=== PATIENT | male | born 1990 | race Caucasian/White ===

== ENCOUNTER 2016-12-11 16:30 | Emergency (ER) | payer OTHER ==
--- NOTE | ~2016-12-11 | CR151 ---
[facility] A Service [facility] RADIOLOGY TEXT RESULTS PATIENT: NAYELI MCMAHON LOCATION: SED : [birth year] UNIT #: [id number] AGE: [address]: Rosamaria Alvares APRN SEX: M ORDER DR: [id number] [place] [id number] E MR#: [id number] Acc #: [id number] NAME: NAYELI MCMAHON : 1990 SEX: M STUDY DATE/TIME: 12/11/2016 16:43 UNIT: SED ROOM: STUDY DESCRIPTION: CR Hip Min 2 Views Rt Attending Physician: Rosamaria Alvares A.P.R.N. Ordering Physician: Rosamaria Becerra A.P.R.N. Primary Care Physician: Benito Martinez M.D. MEDICAL IMAGING REPORT This report is preliminary unless electronic signature is present. EXAM Right hip. HISTORY Hip pain after falling off a roof 2 days ago. TECHNIQUE 2 views of the hip were obtained. FINDINGS AP and oblique examination of the hip shows adequate mineralization of the bones and a normal anatomic relationship of the femoral head with the acetabulum. There are no hypertrophic changes, fractures, dislocation, or joint capsular distension. No radiopaque foreign body is present about the soft tissues of the hip. IMPRESSION Normal hip. Dictated by... Virgil Nichole M.D. THIS IS AN ELECTRONICALLY VERIFIED REPORT Virgil Nichole M.D. at 12/13/2016 11:01 AM CAROLE/wade TD: 12/12/2016 11:01 JOB #: [id number] [facility] A [facility] RADIOLOGY TEXT RESULTS PATIENT: NAYELI MCMAHON LOCATION: SED : 88 UNIT #: [id number] AGE: [address]: Rosamaria Alvares APRN SEX: M ORDER DR: MEDICAL IMAGING REPORT Page 1 of 1
--- NOTE | ~2016-12-11 | CR206 ---
[facility] A Service of [facility] RADIOLOGY TEXT RESULTS PATIENT: NAYELI MCMAHON LOCATION: SED : [birth year] UNIT #: [id number] AGE: [address]: Rosamaria Alvares APRN SEX: M ORDER DR: [id number] [address] [address] [id number] E MR#: [id number] Acc #: [id number] NAME: NAYELI MCMAHON : 1990 SEX: M STUDY DATE/TIME: 12/11/2016 16:43 UNIT: SED ROOM: STUDY DESCRIPTION: CR Pelvis 1 or 2 Views Attending Physician: Rosamaria Alvares A.P.R.N. Ordering Physician: Rosamaria Becerra A.P.R.N. Primary Care Physician: Benito Martinez M.D. MEDICAL IMAGING REPORT This report is preliminary unless electronic signature is present. EXAM AP pelvis HISTORY Trauma 2 days ago. Patient fell off of the roof cleaning gutters. TECHNIQUE Single AP view of the pelvis was obtained. FINDINGS AP, supine examination of the pelvis shows satisfactory mineralization of the bony pelvis. The sacroiliac joints are normal. There is no indication of congenital defect, fracture, or dislocation at the articular anatomy of the sacral segments or of the hip joints. No malignant, lytic, or blastic change is present. IMPRESSION Normal pelvis. Dictated by... Virgil Nichole M.D. THIS IS AN ELECTRONICALLY VERIFIED REPORT Virgil Nichole M.D. at 12/13/2016 11:01 AM RLF/yang TD: 12/12/2016 10:51 JOB #: [id number] MEDICAL IMAGING REPORT [facility] A Service [facility] RADIOLOGY TEXT RESULTS PATIENT: NAYELI MCMAHON LOCATION: SED : [birth year] UNIT #: [id number] AGE: [address]: Rosamaria Alvares APRN SEX: M ORDER DR: Page 1 of 1
[~2016-12-11 16:30] MED LIST: ALBUTEROL17 GM INH; APIDRA (NF100 UNITS/ INJ; BENTYL20 M1 PO; BENTYL20 MG PO; BUDEPRION SR100 M1 PO; DICLOFENAC DR PO; DICLOFENAC PO; DICYCLOMINE HCL20 MG PO; EC-NAPROSYN500 MG PO; HUMALOG100 U/M1 SUBQ; HUMALOG100 U/ML SUBQ; LANTUS100 U/ML; LANTUS100 U/ML INJ; LANTUS100 U/ML SUBQ; LANTUS100 UNITS/ INJ; LANTUS100 UNITS/ SUBQ; LEVEMIR SUBQ; MOTRIN600 M1 PO; NEURONTIN100 MG PO; NEURONTIN300 MG PO; NEURONTIN600 MG PO; NEURONTIN800 MG PO; NO MEDICATIONS; NOVOLOG100 U/ML SUBQ; OMEPRAZOLE20 M2 PO; OXYCODONE-ACET1 EACH PO; PENICILLIN V P500 MG PO; PHENERGAN25 M1 PO; PRILOSEC; PROTONIX PO; PROTONIX20 MG DOB; TYLOX PO; VEETIDS 500500 M1 PO; VIBRAMYCIN100 M1 PO; VICODIN 5/500 T1 TAB PO; VOLTAREN75 MG PO; ZANTAC150 MG PO; ZOFRAN ODT4 MG PO; ZOFRAN PO
== END 2016-12-11 17:50 | disposition home or self-care (01) ==
LOC: SED 16:30
DX: S70.01XA Contusion of right hip, initial encounter (principal); E10.9 Type 1 diabetes mellitus without complications; F31.9 Bipolar disorder, unspecified; F17.210 Nicotine dependence, cigarettes, uncomplicated; W18.30XA Fall on same level, unspecified, initial encounter
CPT/HCPCS: 72170; 73502; 99284

== ENCOUNTER 2016-12-13 10:40 | Inpatient (IN) | payer OTHER ==
--- NOTE | ~2016-12-13 | HP ---
Unit #: [id number] #: [id number] Patient: NAYELI MCMAHON [id number] [facility] [address] [place], [place] [address] [id number] I MR#: [id number] NAME: NAYELI MCMAHON [facility] Age: 26 Sex: M Admission Date: 12/13/2016 : 1990 Attending Physician: Lauren Gutierrez M.D. Primary Care Physician: Benito Martinez M.D. HISTORY AND PHYSICAL CHIEF COMPLAINT Nausea, vomiting and elevated blood sugar. HISTORY OF PRESENT ILLNESS Mr. Mcmahon is a 26-year-old male who is very well known to me from multiple admissions. He was at [facility] a few weeks ago for the same kind of reason. He has been admitted in [facility] multiple times for DKA. The patient has history of diabetes mellitus type 1 which is not very well controlled. According to patient, two days ago he was being under the weather. He was eating but then again vomiting and he did not take his insulin as it was bottoming out too because of vomiting, according to patient. He started having abdominal pain, came to ER for further evaluation. The patient was found to be in DKA. He is being admitted to hospital. He is complaining of abdominal pain which is pretty severe. According to him, he has had small bowel obstruction in the past. Level is 7 to 8 over 10 or so. The patient was also found to be hypotensive and probably dehydrated. PAST MEDICAL HISTORY 1. Diabetes mellitus type 2. 2. Bipolar disorder. 3. Posttraumatic stress disorder. 4. History of peripheral neuropathy. HOME MEDICATIONS 1. Prilosec daily. 2. Humalog 12 units subcutaneous three times a day. 3. Lantus 20 units subcutaneous b.i.d. 4. Neurontin 800 mg three times a day. 5. Zantac 150 mg daily. 6. Bentyl 10 mg daily. PAST SURGICAL HISTORY History of exploratory laparotomy and small bowel resection. ALLERGIES No known drug allergies. SOCIAL HISTORY The patient is a smoker. No alcohol abuse or drug abuse. REVIEW OF SYSTEMS As per history of presenting illness. Plus, patient did have a fall about two days ago while helping his father at work. He came to [facility] Unit #: [id number] #: [id number] [facility] of the hip was done and pelvis was done which were normal. PHYSICAL EXAMINATION VITAL SIGNS: The patient is being evaluated in ICU, bed 11. Blood pressure 97/46, respiratory rate 16, pulse 75, temperature 97.8, oxygen saturation is 99%. HEENT: Head is normocephalic. Eye movements are normal. Oral mucosa seems to be dry. NECK: Supple. No carotid bruit. No thyromegaly. CHEST: Fair air entry. No additional sounds. CARDIOVASCULAR: S1, S2 positive. Regular rhythm. ABDOMEN: Soft. Generalized tenderness is present. Bowel sounds are positive. EXTREMITIES: Negative edema. CENTRAL NERVOUS SYSTEM: The patient is awake, alert, oriented x3. No focal neurological deficit. DIAGNOSTIC STUDIES LABORATORY: Serum acetone level is 20. WBC 8.9, hemoglobin 16.1, hematocrit 49.1, platelet count 261,000. Sodium 126, potassium 4.4, chloride 84, glucose 868, BUN 16, creatinine 1.1. Liver enzymes are stable. ASSESSMENT The patient is being admitted to ICU with: 1. Diabetic ketoacidosis with history of diabetes mellitus type 1, uncontrolled. 2. Hypotension. 3. Dehydration. 4. Abdominal pain. 5. History of bipolar disorder. 6. History of peripheral neuropathy. PLAN 1. Admit to ICU. 2. Insulin drip, diabetic ketoacidosis protocol is being started. 3. IV Protonix 40 mg daily. 4. IV Zofran 4 mg q.6 p.r.n. 5. IV Dilaudid 0.5 to 1 mg q.[address] Santos has been consulted. 7. Discharge summary from [facility] will be obtained. 8. Plan of care has been discussed with patient. 9. Please refer to progress note for further orders. Dictated by Guevara Vargas TD: 12/13/2016 17:18 JOB #: [id number] Unit #: [id number] #: [id number] Patient: NAYELI MCMAHON HISTORY AND PHYSICAL Page 1 of 1 X Lauren Gutierrez MD HISTORY AND PHYSICAL
--- NOTE | ~2016-12-13 | CR72 ---
[facility] A Service of [facility] RADIOLOGY TEXT RESULTS PATIENT: NAYELI MCMAHON LOCATION: [place] [address]11 : [birth year] UNIT #: [id number] AGE: [address]: Lauren Gutierrez MD SEX: M ORDER DR: [id number] [facility] [address] [place], [place] [address] [id number] I MR#: [id number] Acc #: [id number] NAME: NAYELI MCMAHON : 1990 SEX: M STUDY DATE/TIME: 12/13/2016 16:05 UNIT: [facility] ROOM: [facility] STUDY DESCRIPTION: CR Chest Single View Portable Attending Physician: Lauren Gutierrez M.D. Ordering Physician: Lauren Gutierrez M.D. Primary Care Physician: Benito Martinez M.D. MEDICAL IMAGING REPORT This report is preliminary unless electronic signature is present EXAM Portable chest 12/13 INDICATIONS Chest pain today. Diabetic ketoacidosis. FINDINGS AP portable chest compared with 11/06/2016. Cardiac and mediastinal contours are normal. The lungs remain clear. No pneumothorax is seen. IMPRESSION No active disease. Dictated by... Virgil Hay Jr., M.D. THIS IS AN ELECTRONICALLY VERIFIED REPORT Virgil Hay Jr., M.D. at 12/14/2016 1:38 PM ROMINA/trisha TD: 12/14/2016 07:45 JOB #: [id number] MEDICAL IMAGING REPORT Page 1 of 1 COPY
--- NOTE | ~2016-12-13 | CO ---
Unit #: [id number] #: [id number] Patient: NAYELI MCMAHON [id number] [address] [place], [place] [address] [id number] I MR#: [id number] NAME: NAYELI MCMAHON ROOM: [facility] Age: 26 Sex: M Admission Date: 12/13/2016 : 1990 Attending Physician: Lauren Gutierrez M.D. Primary Care Physician: Benito Martinez M.D. Consultation Date: 12/13/2016 CONSULTATION REPORT REASON FOR CONSULTATION Diabetic ketoacidosis. HISTORY OF PRESENT ILLNESS Mr. Felipe is a 26-year-old male with history of type 1 diabetes mellitus for several years with history of multiple admissions for diabetic ketoacidosis. Most recently was at [facility] a few weeks ago, poor compliance with his insulins and his diet. He reports he was doing okay until 2 days ago when he fell down and hurt his hip and he has been taking his insulin, but started having some nausea and vomiting. In the emergency room when he came his blood sugar was above 800. He did have positive ketones, but his bicarb was normal. He has been started on insulin drip and transferred to the unit bed, where the patient is being seen at this point. He is awake and alert. He is oriented to time, place, and person. PAST MEDICAL HISTORY Type 1 diabetes mellitus, bipolar disorder, PTSD, and peripheral neuropathy. HOME MEDICATIONS Lantus 20 units subcu b.i.d., Humalog 12 units each meal, Prilosec, Neurontin 800 mg t.i.d., Zantac 150 daily, Bentyl 10 mg daily. PAST SURGICAL HISTORY Exploratory laparotomy for small-bowel obstruction, history of partial small bowel resection. ALLERGIES None. SOCIAL HISTORY Continues to smoke cigars. No alcohol. Declines any drug abuse. REVIEW OF SYSTEMS Ten point review of system was completed, remarkable for some nausea at this point, but declines any vomiting, diarrhea. No fever, chills, urgency, frequency, or dysuria. At this point, no weakness. Otherwise, review of systems unremarkable. PHYSICAL EXAMINATION GENERAL: He is very lean and thin lola, well nourished. VITAL SIGNS: Temperature 97.5, pulse 76, respirations 20, and blood pressure 119/58. Unit #: [id number] #: [id number] Patient: NAYELI MCMAHON HEENT: EOMI. Pupils equally reactive to light. NECK: Supple. No thyromegaly noted. CHEST: Good air entry. CVS: Regular rhythm. No murmurs. ABDOMEN: Soft and nontender. Bowel sounds positive. EXTREMITIES: No edema noted. DIAGNOSTIC STUDIES LABORATORY RESULTS: Labs were reviewed. Sodium is 135, potassium 3.7, chloride 96, CO2 is 26. A1c is not available. Acetone 20, ketone 1.87. ASSESSMENT 1. Type 1 diabetes mellitus with ketosis, poorly controlled. 2. History of gastroesophageal reflux disease. 3. Peripheral neuropathy. PLAN We will start the patient on Levemir 20 units at bedtime. Discontinue insulin drip. We will continue IV fluids tonight and the morning. We will advance the diet that are consistent carbs with 60 g per meal. Cover with insulin NovoLog 6 units per meal plus correction factor will be 1 unit for every 50 above 150. Switch the Accu-Cheks q.4 tonight and then a.c. h.s. in the morning. We will continue to follow. Monitor electrolytes closely and replace as needed. Thanks again for consultation. Dictated by... Guevara Mckeon/melba TD: 12/14/2016 02:43 JOB #: [id number] CONSULTATION REPORT Page 1 of 1 X Naa Santos MD CONSULTATION REPORT
--- NOTE | ~2016-12-13 | EKG ---
PATIENT: NAYELI MCMAHON UNIT #: [id number] Ventricular Rate: 73 BPM Atrial Rate: 73 BPM P-R Interval: 110 ms QRS Duration: 80 ms Q-T Interval: 378 ms QTC Calculation(Bezet): 416 ms P Frankford: 51 degrees Calculated R Frankford: 88 degrees Calculated T Frankford: 77 degrees Diagnosis Line: Sinus rhythm with short FL Diagnosis Line: T wave abnormality, consider anterior ischemia Diagnosis Line: Abnormal ECG Diagnosis Line: When compared with ECG of 11-NOV-2015 12:38, Diagnosis Line: T wave inversion now evident in Anterior leads Diagnosis Line: Confirmed by JOSE ENRIQUE KWONG MD ([id number]) on 12/15/2016 Diagnosis Line: 9:14:32 AM INTERPRETING MD: ELENITA LAZO
--- NOTE | ~2016-12-13 | A ---
[facility] Nutrition Therapy DATE: 12/14/16 Patient: NAYELI SPEARSEDY Physician: ARTUR Address: [address] [facility] Room/Bed: [address], Zip: [place] [address] Admit Date: 12/13/16 Date of : [birth year] Height: Weight: 110 50 NUTRITIONAL ASSESSMENT: REASON: PT SEEN FOR DX + LOW BMI PT IS 26 Y.O. MALE ADMITTED FOR DKA, N/V PMH: T1DM, RECURRENT DKA, PERIPHERAL NEUROPATHY, BIPOLAR DISORDER, ASTHMA, GERD, PTSD, HX OF PARTIAL SMALL BOWEL OBSTRUCTION Anthropometrics: 6'0", WT: 105# (48 KG), BMI: 14.2, 59%IBW Labs: GLU: 159, A1c PENDING Meds: PROTONIX, NOVOLOG, LEVEMIR, ZOFRAN I/O & Bowel function: 2221/650 Skin Integrity: NO KNOWN SKIN ISSUES Estimated Nutrition Needs: INCREASED NUTRIENT NEEDS 2' PT UNDERWEIGHT, WEIGHT LOSS NOTED, CURRENT CONDITION Assessment: CHART REVIEWED AND EVENTS NOTED. PT SEEN FOR DX + LOW BMI. PT REPORTS DECREASED PO INTAKE 2' DECREASED APPETITE D/T N/V PAST SEVERAL DAYS. PT REPORTS LOSING ~50-60# OVER PAST 3 YEARS 2' DM POOR COMPLIANCE. PER RN AND CHART, PT NOTED TO HAVE POOR COMPLIANCE WITH MEDS AND DIET. THIS RD ENCOURAGED SLOW GRADUAL PO INTAKE + SUPPLEMENT INTAKE, PT REFUSED SUPPLEMENTS AT THIS TIME. RD ALSO PROVIDED WRITTEN VERBAL AND WRITTEN CC DIET EDUCATION. RD PROVIDED LIST OF FOODS TO AVOID/LIMIT AND FOODS TO EAT MORE OFTEN. RD ALSO ENCOURAGED PT TO CUT BACK ON SUGAR-SWEETENED BEVERAGES. PT REPORTS DRINKING "BIG RED" DAILY AND WILLING TO CUT BACK AND DRINK MORE WATER. PT REPORTED NO DIET QUESTIONS AT THIS TIME. RD TO CONTINUE TO FOLLOW. SEE RECOMMENDATIONS BELOW. Dx: UNDERWEIGHT R/T DX, PMH AEB LOW BMI OF 14.2, 59%IBW, WEIGHT LOSS NOTED OVER PAST 3 YEARS, PT REPORT ABOVE. -IMPAIRED GLYCEMIC CONTROL R/T DX, PMH AEB ELEVATED BLOOD SUGAR LEVELS, PAST ELEVATED A1c LEVELS (CURRENT PENDING). Intervention: 1. CC DIET (60 GRAMS CARBS PER MEAL) 2. DIET EDUCATION PROVIDED Monitoring, Evaluation and Goals: 1. PO INTAKE; PROVIDE AND CONSUME ADEQUATE NUTRITION W/NO C/O N/V/D (PO>50%) [facility] Nutrition Therapy DATE: 12/14/16 Patient: NAYELI WRIGHT LISANDRO Physician: ARTUR Address: [id number] [place] [address] Room/Bed: [address], Zip: [place] [address] Admit Date: 12/13/16 Date of : [birth year] Height: Weight: 110 50 2. WEIGHTS; PROMOTE GRADUAL WEIGHT GAIN; PREVENT FURTHER WEIGHT LOSS 3. LABS; IMPROVE GLYCEMIC CONTROL (GLU, A1c) 4. GI; PROMOTE REGULAR GI FUNCTION MONITOR: -PO INTAKE/APPETITE -WEIGHTS -LABS (GLU, A1c) -EDUCATION NEEDS Recommendations: 1. CONTINUE TO ENCOURAGE COMPLIANCE OF CURRENT DIET ORDER 2' CURRENT CONDITION, PMH OF DM 2. ENCOURAGE ADEQUATE KCAL AND PROTEIN INTAKE 2' PT UNDERWEIGHT 3. CONSULT RD IF FURTHER DIET EDUCATION NEEDED/REQUESTED RD WILL F/U PER PROTOCOL MODERATELY COMPROMISED Respectfully, ASTRID PALUMBO MS, RD, LD [facility] Nutrition[facility] cc: client file
--- NOTE | ~2016-12-13 | DS ---
Unit #: [id number] #: [id number] Patient: NAYELI MCMAHON [id number] [address] [address] [id number] I MR#: [id number] NAME: NAYELI MCMAHON ROOM: [facility] Age: 26 Sex: M Admission Date: 12/13/2016 : 1990 Discharge Date: 12/14/2016 Attending Physician: Lauren Gutierrez M.D. Primary Care Physician: Benito Martinez M.D. DISCHARGE SUMMARY FINAL DIAGNOSES 1. Diabetes mellitus, Uncontrolled. 2. Diabetic ketoacidosis, resolved. 3. Ketosis, resolved. 4. Dehydration, resolved. 5. Hypertension has improved. 6. Hypokalemia, potassium will be replaced. 7. Leukocytosis has improved. DISCHARGE MEDICATIONS Neurontin, continue home dose; Bentyl 10 mg daily; Lantus 20 units subcu b.i.d.; Humalog 12 units subcu b.i.d.; Zantac 150 mg p.o. daily; Prilosec 40 mg daily. CONSULTATION DURING HOSPITALIZATION Dr. Santos from [facility]. HOSPITAL COURSE Mr. Burton is a 26-year-old male, who was admitted to the hospital with DKA, dehydration and intractable nausea and vomiting. The patient was admitted to ICU. He was started on insulin drip per DKA protocol. Dr. Santos was consulted. His sugars have much improved. The patient's nausea and vomiting have improved. Abdominal pain has improved. His lab workup looks really good and the patient is being discharged home as he really wants to go home today. The patient has been advised to be compliant with the medications and also with the blood sugar checked. He needs to continue followup with rn practitioner. He needs to watch his blood sugars very closely. He verbalizes understanding. DIAGNOSTIC STUDIES LABORATORY RESULTS: On discharge, WBC 12.3, hemoglobin 12.5, hematocrit 37.4, platelet count of 242. Sodium 136, potassium 3.1, chloride 99, bicarb 27, BUN 11, creatinine 0.5. The patient's potassium is being replaced before discharge. DISCHARGE MEDICATIONS As per med rec. DISCHARGE INSTRUCTIONS 1. Follow up with primary care provider in 1 week. 2. Follow up with rn practitioner in 2 to 3 weeks or so. 3. BMP and CBC to be repeated in 1 week as outpatient. Unit #: [id number] #: [id number] Patient: NAYELI MCMAHON Dictated by... Guevara Vargas/melba TD: 12/15/2016 02:27 JOB #: [id number] DISCHARGE SUMMARY Page 1 of 1 X Lauren Gutierrez MD X DISCHARGE SUMMARY
--- NOTE | ~2016-12-13 | CR7 ---
[facility] A Service of [facility] & [facility] RADIOLOGY TEXT RESULTS PATIENT: NAYELI MCMAHON LOCATION: [address] : [birth year] UNIT #: [id number] AGE: [address]: Lauren Gutierrez MD SEX: M ORDER DR: [id number] [facility] [address] [place], [place] [address] [id number] I MR#: [id number] Acc #: [id number] NAME: NAYELI MCMAHON : 1990 SEX: M STUDY DATE/TIME: 12/13/2016 20:34 UNIT: [facility] ROOM: [facility] STUDY DESCRIPTION: CR Abdomen Single AP View Attending Physician: Lauren Gutierrez M.D. Ordering Physician: Lauren Gutierrez M.D. Primary Care Physician: Benito Martinez M.D. MEDICAL IMAGING REPORT This report is preliminary unless electronic signature is present EXAM Portable abdomen HISTORY Abdomen pain and nausea and vomiting since yesterday. FINDINGS The bowel gas pattern is normal. No bowel dilatation or displacement. Surgical staple line in the lower pelvis. No abnormal calcifications. IMPRESSION No acute findings. Bowel gas pattern is normal. Dictated by... Hemant Gonzalez M.D. THIS IS AN ELECTRONICALLY VERIFIED REPORT Hemant Gonzalez M.D. at 12/14/2016 9:05 PM CHING/omid TD: 12/14/2016 11:50 JOB #: [id number] MEDICAL IMAGING REPORT Page 1 of 1 COPY
[2016-12-13 11:18] LABS: BASOPHIL# 0.1 X10e3 (0-0.3); BASOPHIL% 0.6 % (0-2.5); HEMATOCRIT 49.1 % (38.0-50.0); HEMOGLOBIN 16.1 gm/dL (13.0-16.0); LYMPHOCYTE# 0.9 X10e3 (1.0-3.5); LYMPHOCYTE% 9.8 % (17.0-45.0); MEAN CELL VOLUME 97.6 FL (83-96); MEAN CORPUSCULAR HEMOGLOBIN 31.9 PG (28-34); MEAN CORPUSCULAR HGB CONC 32.7 g/dL (30-36); MEAN PLATELET VOLUME 9.7 FL (6.5-11.5); MONOCYTE# 0.2 X10e3 (0-1.0); MONOCYTE% 1.9 % (3.0-12.0); NEUTROPHIL# 7.8 X10e3 (1.5-7.1); NEUTROPHIL% 87.7 % (40-75); PLATELET COUNT 261 X10e3 (140-420); RED BLOOD COUNT 5.03 X10e (3.90-5.60); RED CELL DISTRIBUTION WIDTH 13.3 % (11.0-15.5); WHITE BLOOD COUNT 8.9 X10e3 (4.0-10.5)
[2016-12-13 11:20] LABS: ARTERIAL BLD GAS O2 SATURATION 59.4 % (90.0-100.0); ARTERIAL BLOOD GAS CARBOXY HB 4.2 %sat (0.0-9.0); ARTERIAL BLOOD GAS HCO3 25.3 mmol/L; URINE SOURCE CLEAN CATCH
[2016-12-13 11:23] LABS: URINE APPEARANCE CLEAR; URINE BILIRUBIN NEG (NEG); URINE BLOOD NEG (NEG); URINE COLOR YELLOW; URINE GLUCOSE 300 MG/DL (NORM); URINE LEUKOCYTE ESTERASE NEG (NEG); URINE NITRATE NEG (NEG); URINE PH 5.5 (5-8); URINE PROTEIN NEG (NEG); URINE SPECIFIC GRAVITY <=1.005 (1.003-1.035); URINE UROBILINOGEN 0.2 MG/DL (NORM)
[2016-12-13 11:25] LABS: ARTERIAL BLOOD GAS ALLEN TEST N; ARTERIAL DRAW? NO
[2016-12-13 11:30] LABS: MICRO INDICATED? NO; URINE KETONE 3+ (NEG)
[2016-12-13 11:35] LABS: DIFF IND NO
[2016-12-13 11:43] LABS: ALBUMIN SERUM 4.6 g/dL (3.5-5.0); ALKALINE PHOSPHATASE 130 U/L (32-92); ALT (SGPT) 16 U/L (10-40); AST (SGOT) 17 U/L (10-42); BILIRUBIN,TOTAL 1.6 mg/dL (0.2-2.0); BLOOD UREA NITROGEN 16 mg/dL (9-23); BUN/CREATININE RATIO 14.54; CALCIUM SERUM 9.3 mg/dL (8.4-10.2); CARBON DIOXIDE 23 mmol/L (22-31); CHLORIDE 84 mmol/L (100-111); CREATININE SERUM 1.1 mg/dL (0.6-1.4); GLOM FILT RATE Estimated ABOVE60 mL/min (>60); POTASSIUM 4.4 mmol/L (3.5-5.1); PROTEIN TOTAL SERUM 8.2 g/dL (6.0-8.3); SODIUM 126 mmol/L (135-145)
[2016-12-13 12:00] LABS: GLUCOSE FASTING 868 mg/dL (70-110)
[2016-12-13 15:00] LABS: ARTERIAL BLD GAS O2 SATURATION 93.9 % (90.0-100.0); ARTERIAL BLOOD GAS ART SITE RIGHT RADIAL; ARTERIAL BLOOD GAS HCO3 25.6 mmol/L; ARTERIAL BLOOD GAS MET HB 0.7 %sat (0.0-2.0); ARTERIAL BLOOD GAS PCO2 40.1 mmHg (35.0-45.0); ARTERIAL BLOOD GAS PO2 80.2 mmHg (80.0-100); ARTERIAL BLOOD GAS pH 7.414 (7.350-7.450); ARTERIAL DRAW? YES
[2016-12-13 15:52] LABS: BASOPHIL# 0.1 X10e3 (0-0.3); BASOPHIL% 0.5 % (0-2.5); HEMATOCRIT 44.6 % (38.0-50.0); HEMOGLOBIN 14.7 gm/dL (13.0-16.0); LYMPHOCYTE# 1.1 X10e3 (1.0-3.5); LYMPHOCYTE% 11.1 % (17.0-45.0); MEAN CELL VOLUME 96.1 FL (83-96); MEAN CORPUSCULAR HEMOGLOBIN 31.7 PG (28-34); MEAN PLATELET VOLUME 9.7 FL (6.5-11.5); MONOCYTE# 0.3 X10e3 (0-1.0); MONOCYTE% 3.1 % (3.0-12.0); NEUTROPHIL# 8.5 X10e3 (1.5-7.1); NEUTROPHIL% 85.3 % (40-75); PLATELET COUNT 251 X10e3 (140-420); RED BLOOD COUNT 4.64 X10e (3.90-5.60); WHITE BLOOD COUNT 9.9 X10e3 (4.0-10.5)
[2016-12-13 15:55] LABS: DIFF IND NO
[2016-12-13 16:18] LABS: ALBUMIN SERUM 3.9 g/dL (3.5-5.0); ALKALINE PHOSPHATASE 111 U/L (32-92); ALT (SGPT) 14 U/L (10-40); AST (SGOT) 23 U/L (10-42); BLOOD UREA NITROGEN 13 mg/dL (9-23); BUN/CREATININE RATIO 14.44; CALCIUM SERUM 8.6 mg/dL (8.4-10.2); CARBON DIOXIDE 26 mmol/L (22-31); CHLORIDE 96 mmol/L (100-111); CREATININE SERUM 0.9 mg/dL (0.6-1.4); GLOM FILT RATE Estimated ABOVE60 mL/min (>60); GLUCOSE FASTING 341 mg/dL (70-110); POTASSIUM 3.7 mmol/L (3.5-5.1); PROTEIN TOTAL SERUM 7.2 g/dL (6.0-8.3); SODIUM 135 mmol/L (135-145)
[2016-12-13 16:41] LABS: BETA HYDROXYBUTYRATE 1.87 MMOL/L (0.02-0.27); PHOSPHOROUS 3.5 mg/dL (2.5-4.6)
[2016-12-13 19:17] LABS: BLOOD UREA NITROGEN 14 mg/dL (9-23); CALCIUM SERUM 8.6 mg/dL (8.4-10.2); CARBON DIOXIDE 26 mmol/L (22-31); CHLORIDE 103 mmol/L (100-111); CREATININE SERUM 0.8 mg/dL (0.6-1.4); GLOM FILT RATE Estimated ABOVE60 mL/min (>60); GLUCOSE FASTING 159 mg/dL (70-110); SODIUM 139 mmol/L (135-145)
[2016-12-14 05:53] LABS: BASOPHIL# 0.1 X10e3 (0-0.3); BASOPHIL% 0.7 % (0-2.5); EOSINOPHIL# 0.1 X10e3 (0-0.7); EOSINOPHIL% 0.6 % (0.0-7.0); HEMATOCRIT 37.4 % (38.0-50.0); LYMPHOCYTE# 3.7 X10e3 (1.0-3.5); LYMPHOCYTE% 30.1 % (17.0-45.0); MEAN CELL VOLUME 95.4 FL (83-96); MEAN CORPUSCULAR HEMOGLOBIN 31.9 PG (28-34); MEAN CORPUSCULAR HGB CONC 33.4 g/dL (30-36); MEAN PLATELET VOLUME 9.5 FL (6.5-11.5); MONOCYTE# 0.9 X10e3 (0-1.0); MONOCYTE% 7.3 % (3.0-12.0); NEUTROPHIL# 7.6 X10e3 (1.5-7.1); NEUTROPHIL% 61.3 % (40-75); PLATELET COUNT 242 X10e3 (140-420); RED BLOOD COUNT 3.93 X10e (3.90-5.60); RED CELL DISTRIBUTION WIDTH 13.2 % (11.0-15.5); WHITE BLOOD COUNT 12.3 X10e3 (4.0-10.5)
[2016-12-14 06:02] LABS: DIFF IND NO; HEMOGLOBIN 12.5 gm/dL (13.0-16.0)
[2016-12-14 11:04] LABS: BLOOD UREA NITROGEN 11 mg/dL (9-23); CALCIUM SERUM 8.7 mg/dL (8.4-10.2); CARBON DIOXIDE 27 mmol/L (22-31); CHLORIDE 99 mmol/L (100-111); CREATININE SERUM 0.5 mg/dL (0.6-1.4); GLOM FILT RATE Estimated ABOVE60 mL/min (>60); GLUCOSE FASTING 102 mg/dL (70-110); PHOSPHOROUS 3.4 mg/dL (2.5-4.6); POTASSIUM 3.1 mmol/L (3.5-5.1); SODIUM 136 mmol/L (135-145)
== END 2016-12-14 12:30 | disposition home or self-care (01) | DRG 638 ==
LOC: SED 10:40 → C2A 12:40 → CICCU2 14:51
PROVIDERS: Emergency Medicine; Family Medicine; Physician Assistant Medical
DX: E10.10 Type 1 diabetes mellitus with ketoacidosis without coma (principal); E44.0 Moderate protein-calorie malnutrition; I95.9 Hypotension, unspecified; E10.42 Type 1 diabetes mellitus with diabetic polyneuropathy; Z68.1 Body mass index [BMI] 19.9 or less, adult; Z79.4 Long term (current) use of insulin; F31.9 Bipolar disorder, unspecified; F43.10 Post-traumatic stress disorder, unspecified; E86.0 Dehydration; R10.9 Unspecified abdominal pain; K21.9 Gastro-esophageal reflux disease without esophagitis; E87.6 Hypokalemia; D72.829 Elevated white blood cell count, unspecified
CPT/HCPCS: 36600; 71010; 74000; 80048; 80053; 81003; 82010; 82150; 82803; 82947; 83036; 84100; 85025; 87040; 93005; 96361; 96372; 96374; 96375; 99291; C9113; J0500; J1170; J1815; J2405

== ENCOUNTER 2016-12-23 16:22 | Emergency (ER) | payer OTHER ==
[2016-12-23 15:30] LABS: BASOPHIL# 0.1 X10e3 (0-0.3); BASOPHIL% 0.8 % (0-2.5); EOSINOPHIL% 0.2 % (0.0-7.0); HEMATOCRIT 49.4 % (38.0-50.0); HEMOGLOBIN 16.5 gm/dL (13.0-16.0); LYMPHOCYTE# 1.5 X10e3 (1.0-3.5); LYMPHOCYTE% 15.1 % (17.0-45.0); MEAN CELL VOLUME 96.5 FL (83-96); MEAN CORPUSCULAR HEMOGLOBIN 32.3 PG (28-34); MEAN CORPUSCULAR HGB CONC 33.4 g/dL (30-36); MEAN PLATELET VOLUME 9.6 FL (6.5-11.5); MONOCYTE# 0.5 X10e3 (0-1.0); MONOCYTE% 4.7 % (3.0-12.0); NEUTROPHIL# 8.1 X10e3 (1.5-7.1); NEUTROPHIL% 79.2 % (40-75); PLATELET COUNT 215 X10e3 (140-420); RED BLOOD COUNT 5.12 X10e (3.90-5.60); RED CELL DISTRIBUTION WIDTH 13.5 % (11.0-15.5); WHITE BLOOD COUNT 10.3 X10e3 (4.0-10.5)
[2016-12-23 15:34] LABS: DIFF IND NO
[2016-12-23 16:12] LABS: ALBUMIN SERUM 4.6 g/dL (3.5-5.0); ALKALINE PHOSPHATASE 114 U/L (32-92); ALT (SGPT) 17 U/L (10-40); AST (SGOT) 21 U/L (10-42); BLOOD UREA NITROGEN 15 mg/dL (9-23); BUN/CREATININE RATIO 13.63; CALCIUM SERUM 9.4 mg/dL (8.4-10.2); CARBON DIOXIDE 31 mmol/L (22-31); CHLORIDE 83 mmol/L (100-111); CREATININE SERUM 1.1 mg/dL (0.6-1.4); GLOM FILT RATE Estimated 90.9 mL/min (>60); POTASSIUM 5.1 mmol/L (3.5-5.1); PROTEIN TOTAL SERUM 7.6 g/dL (6.0-8.3); SODIUM 129 mmol/L (135-145)
[2016-12-23 16:13] LABS: ALCOHOL BLOOD <5 mg/dL ([, 0]); GLUCOSE FASTING 685 mg/dL (70-110)
[2016-12-23 16:24] LABS: URINE APPEARANCE CLEAR; URINE BILIRUBIN NEG (NEG); URINE BLOOD NEG (NEG); URINE COLOR YELLOW; URINE GLUCOSE 300 MG/DL (NORM); URINE LEUKOCYTE ESTERASE NEG (NEG); URINE NITRATE NEG (NEG); URINE PH 6.5 (5-8); URINE PROTEIN NEG (NEG); URINE SPECIFIC GRAVITY <=1.005 (1.003-1.035); URINE UROBILINOGEN 0.2 MG/DL (NORM)
[2016-12-23 16:29] LABS: MICRO INDICATED? NO; URINE KETONE 2+ (NEG)
[2016-12-23 18:55] LABS: BUN/CREATININE RATIO 14.44; CALCIUM SERUM 8.5 mg/dL (8.4-10.2); CREATININE SERUM 0.9 mg/dL (0.6-1.4); GLOM FILT RATE Estimated 115.8 mL/min (>60)
[2016-12-23 19:01] LABS: POTASSIUM 3.1 mmol/L (3.5-5.1)
== END 2016-12-23 19:37 | disposition home or self-care (01) ==
LOC: SED 16:22
PROVIDERS: Emergency Medicine
DX: E10.65 Type 1 diabetes mellitus with hyperglycemia (principal); E10.40 Type 1 diabetes mellitus with diabetic neuropathy, unspecified; F31.9 Bipolar disorder, unspecified; F17.210 Nicotine dependence, cigarettes, uncomplicated; Z79.899 Other long term (current) drug therapy; Z79.4 Long term (current) use of insulin
CPT/HCPCS: 36415; 80048; 80053; 81003; 82010; 82947; 85025; 96361; 96365; 96375; 99284; C9113; G0480; J2270; J2405

== ENCOUNTER 2016-12-29 19:03 | Emergency (ER) | payer OTHER | END 2016-12-29 19:51 | disposition home or self-care (01) | LOC: SED 19:03 | DX: K05.219 Aggressive periodontitis, localized, unspecified severity (principal); J45.909 Unspecified asthma, uncomplicated; E10.9 Type 1 diabetes mellitus without complications; F17.210 Nicotine dependence, cigarettes, uncomplicated | CPT/HCPCS: 82947; 96372; 99282; 99283; J0696 ==

== ENCOUNTER 2016-12-31 08:15 | Inpatient (IN) | payer OTHER ==
--- NOTE | ~2016-12-31 | HP ---
Unit #: [id number] #: [id number] Patient: NAYELI MCMAHON [id number] [address] [place], [place] [address] [id number] I MR#: [id number] NAME: NAYELI MCMAHON ROOM: [address] Age: 26 Sex: M Admission Date: 12/31/2016 : 1990 Attending Physician: Lauren Gutierrez M.D. Referring Physician: Self Referral-Refer Use Only Primary Care Physician: Benito Martinez M.D. HISTORY AND PHYSICAL CHIEF COMPLAINT Nausea, vomiting, abdominal pain. HISTORY OF PRESENT ILLNESS Mr. Mcmahon is a 26-year-old male with a history of diabetes mellitus type 1, noncompliant, and has been here in the hospital multiple times for diabetic ketoacidosis. The patient went to the emergency room yesterday because of his left face swelling. He was diagnosed with abscess tooth and was given clindamycin. According to the patient, he did take two to three tablets of clindamycin yesterday, but then he started throwing up. He could not eat anything. The whole night he has been throwing up. He started having abdominal pain. He came to the emergency room and was found to be in diabetic ketoacidosis. The patient is being admitted to the hospital for diabetic ketoacidosis management. The patient is complaining of abdominal pain. Level of pain is 7-8/10. He is also complaining of tooth pain. His vomiting is kind of improved. He would like to eat or drink something. PAST MEDICAL HISTORY 1. Diabetes mellitus type 1. 2. Bipolar disorder. 3. Posttraumatic stress disorder. 4. Gastroesophageal reflux disease. 5. History of neuropathy. PAST SURGICAL HISTORY 1. History of exploratory laparotomy for small bowel obstruction in the past. 2. History of partial small bowel obstruction. SOCIAL HISTORY The patient smokes cigars. No history of alcohol abuse. He does smoke marijuana. No IV drug abuse. The patient did take some Percocet from his mother for tooth pain. FAMILY HISTORY ALLERGIES No known drug allergies. HOME MEDICATIONS 1. Neurontin 800 mg q.i.d. 2. Cleocin 150 mg q.6 h. Unit #: [id number] #: [id number] Patient: NAYELI MCMAHON 3. Humalog 12 units subcutaneous t.i.d. 4. Lantus 20 units subcutaneous b.i.d. REVIEW OF SYSTEMS As per history of present illness. There is no history of fever, chills or rigors. No history of body aches. No history of chest pain. His abdominal pain has improved a lot. No history of dizziness or syncopal episode. The rest is as per history of present illness. PHYSICAL EXAMINATION GENERAL: The patient is being examined in room 11 in the emergency room. VITALS: Blood pressure 96/60, respiratory rate 22, pulse 98, temperature 98.6, oxygen saturation 97%. HEENT: Head is normocephalic. Eye movements are normal. Left oral cavity very bad dentition. Swelling of the left lower gums and face. I do not see any pus drainage, although face exam was limited. NECK: Supple. CHEST: Fair air entry. No additional sounds. HEART: S1 and S2 positive. Regular rhythm. ABDOMEN: Soft. Mild tenderness generalized. EXTREMITIES: Negative edema. NEUROLOGIC: The patient is awake, alert, oriented times three, no focal neurological deficits. DIAGNOSTIC STUDIES IMAGING: Chest x-ray single view was done, which shows negative portable chest. Abdominal x-ray shows normal. No evidence of free air. LABORATORY: Lactic acid is 4.0. White blood cell count 16.3, hemoglobin 16.0, hematocrit 49.7, platelets 227. Sodium 128, potassium 4.7, chloride 85, bicarb 14, blood glucose 587, CK 354. Urinalysis shows ketones positive, more than 1000 sugar. ASSESSMENT The patient is being admitted to the ICU with the diagnosis of 1. Diabetic ketoacidosis. 2. Nausea, vomiting and abdominal pain. 3. Hyponatremia secondary to hyperglycemia. 4. Leukocytosis, possibly secondary to diabetic ketoacidosis and tooth infection. 5. Tooth abscess. 6. Hypotension. 7. Tobacco abuse. PLAN Admit to the ICU. Diabetic ketoacidosis protocol, insulin drip is being started. Dr. Santos has been consulted. IV clindamycin 300 mg q.8 h. has been started. Blood cultures times two will be done. Pain management is being done. ENT consult will be done. CBC and BMP in the morning. SCDs bilaterally. Clear liquids. The plan of care has been discussed with the patient at length. Please refer to progress note for further orders. Unit #: [id number] #: [id number] Patient: NAYELI MCMAHON Dictated by Guevara Vargas/jesi TD: 12/31/2016 14:10 JOB #: [id number] HISTORY AND PHYSICAL Page 1 of 1 X Lauren Gutierrez MD X HISTORY AND PHYSICAL
--- NOTE | ~2016-12-31 | CR6 ---
[facility] A Service of [facility] & [facility] RADIOLOGY TEXT RESULTS PATIENT: NAYELI MCMAHON LOCATION: [facility] 566-01 : [birth year] UNIT #: [id number] AGE: [address]: Lauren Gutierrez MD SEX: M ORDER DR: [id number] [facility] [address] [place], [place] [address] [id number] I MR#: [id number] Acc #: [id number] NAME: NAYELI MCMAHON : 1990 SEX: M STUDY DATE/TIME: 12/31/2016 8:26 UNIT: CEDOF ROOM: 08403 STUDY DESCRIPTION: CR Abdomen Portable Sng View Attending Physician: Lauren Gutierrez M.D. Referring Physician: Self Referral-Refer Use Only Ordering Physician: Helen Greene M.D. Primary Care Physician: Benito Martinez M.D. MEDICAL IMAGING REPORT This report is preliminary unless electronic signature is present EXAM Portable abdomen, 12/31/2016. COMPARISON 12/13. HISTORY Abdominal pain, nausea and vomiting beginning today. FINDINGS KUB is obtained. The gas pattern in the abdomen is normal. No evidence of organomegaly, mass or free air. No dilated or thickened loops of bowel are seen. CONCLUSION Normal. Dictated by... Nii Ca M.D. THIS IS AN ELECTRONICALLY VERIFIED REPORT Nii Ca M.D. at 01/02/2017 5:02 PM MITALI/simona TD: 12/31/2016 12:32 JOB #: [id number] MEDICAL IMAGING REPORT Page 1 of 1 COPY
--- NOTE | ~2016-12-31 | DS ---
Unit #: [id number] #: [id number] Patient: NAYELI MCMAHON [id number] [address] [address] [id number] I MR#: [id number] NAME: NAYELI MCMAHON ROOM: 566 Age: 26 Sex: M Admission Date: 12/31/2016 : 1990 Discharge Date: 01/01/2017 Attending Physician: Lauren Gutierrez M.D. Referring Physician: Self Referral-Refer Use Only Primary Care Physician: Benito Martinez M.D. DISCHARGE SUMMARY FINAL DIAGNOSES 1. Diabetic ketoacidosis, which is resolved. 2. Dental abscess. 3. Nausea, vomiting, improved. 4. Hyponatremia, improved. 5. Leukocytosis, improved. 6. Hypotension, resolved. 7. Tobacco abuse. 8. Marijuana abuse. DISCHARGE MEDICATIONS 1. Cleocin 150 mg q.6 hourly. 2. Gabapentin 800 mg q.i.d. 3. Insulin, Humalog, 12 units subcu t.i.d. 4. Lantus insulin, 20 units subcu b.i.d. CONSULTATION DURING HOSPITALIZATION Dr. Santos. LAB WORKUP ON DISCHARGE Sodium 133, potassium 3.7, chloride 101, BUN 13, creatinine 0.7, bicarb 25. Hemoglobin A1C 9.9. Lactic acid 1.0. HOSPITAL COURSE Mr. Nayeli Mcmahon is a 26-year-old male, who has had multiple admissions for the same reason. The patient came to ER with nausea, vomiting, abdominal pain. A few days prior to coming, the patient went to ER for the dental abscess and was given clindamycin. He was not eating much. He took clindamycin two days and then his sugars were running very high. He came to ER and was found to be in DKA. The patient was admitted to hospital at [facility] in ICU. Insulin drip was started. IV clindamycin was given for tooth abscess. The patient is doing much better at this time. He would like to go home. The patient has appointment at dental clinic at [facility]. VITAL SIGNS ON DISCHARGE: Blood pressure 110/80. Respiratory rate 18. Pulse 64. Temperature 98.0. CHEST: Fair air entry. No additional sounds. CARDIOVASCULAR: Regular rhythm. HEENT: Left face swelling is much improved, as he had a lot of pus drainage from his tooth. DISCHARGE INSTRUCTIONS 1. The patient is being discharged home in stable condition. His Unit #: [id number] #: [id number] Patient: NAYELI MCMAHON medication is as per medication reconciliation. 2. Follow up with primary care provider in one week. 3. Follow up with dentist as scheduled. 4. Diet counseling done. The patient has been advised to be compliant with the medications. He verbalizes understanding. Dictated by... Lauren Gutierrez M.D. Choco TD: 01/02/2017 08:42 JOB #: [id number] DISCHARGE SUMMARY Page 1 of 1 X Lauren Gutierrez MD X DISCHARGE SUMMARY
--- NOTE | ~2016-12-31 | CR72 ---
[facility] A Service of [facility] & [facility] RADIOLOGY TEXT RESULTS PATIENT: NAYELI MCMAHON LOCATION: [facility] 566-01 : [birth year] UNIT #: [id number] AGE: [address]: Lauren Gutierrez MD SEX: M ORDER DR: [id number] [facility] [address] [place], [place] [address] [id number] I MR#: [id number] Acc #: [id number] NAME: NAYELI MCMAHON : 1990 SEX: M STUDY DATE/TIME: 12/31/2016 8:25 UNIT: CEDOF ROOM: 42591 STUDY DESCRIPTION: CR Chest Single View Portable Attending Physician: Lauren Gutierrez M.D. Referring Physician: Deonte Self Referred Ordering Physician: Helen Greene M.D. Primary Care Physician: Benito Martinez M.D. MEDICAL IMAGING REPORT This report is preliminary unless electronic signature is present EXAM Portable chest radiograph. HISTORY Tachycardia and weakness. Abdominal pain, nausea, and vomiting beginning today. History of bowel resection. FINDINGS AP view was obtained. The cardiovascular configuration is stable, and the lungs are clear. CONCLUSION Negative portable chest. Dictated by... Nii Ca M.D. THIS IS AN ELECTRONICALLY VERIFIED REPORT Nii Ca M.D. at 01/02/2017 5:02 PM Sean TD: 12/31/2016 12:32 JOB #: [id number] MEDICAL IMAGING REPORT Page 1 of 1 COPY
--- NOTE | ~2016-12-31 | EKG ---
PATIENT: NAYELI MCMAHON UNIT #: [id number] Ventricular Rate: 98 BPM Atrial Rate: 98 BPM P-R Interval: 114 ms QRS Duration: 86 ms Q-T Interval: 340 ms QTC Calculation(Bezet): 434 ms P Ty Ty: 77 degrees Calculated R Ty Ty: 96 degrees Calculated T Ty Ty: 60 degrees Diagnosis Line: Normal sinus rhythm Diagnosis Line: Right atrial enlargement Diagnosis Line: Rightward axis Diagnosis Line: Pulmonary disease pattern Diagnosis Line: Abnormal ECG Diagnosis Line: When compared with ECG of 13-DEC-2016 15:09, Diagnosis Line: T wave inversion no longer evident in Anterior Diagnosis Line: leads Diagnosis Line: Confirmed by RIVERA BARCENAS MD ([id number]) on 01/01/2017 Diagnosis Line: 4:32:35 PM INTERPRETING MD: SWAPNA LAZO
[2016-12-31 08:16] LABS: BASOPHIL# 0.1 X10e3 (0-0.3); BASOPHIL% 0.5 % (0-2.5); HEMATOCRIT 49.7 % (38.0-50.0); LYMPHOCYTE# 1.1 X10e3 (1.0-3.5); LYMPHOCYTE% 6.9 % (17.0-45.0); MEAN CELL VOLUME 99.1 FL (83-96); MEAN CORPUSCULAR HEMOGLOBIN 31.9 PG (28-34); MEAN CORPUSCULAR HGB CONC 32.2 g/dL (30-36); MEAN PLATELET VOLUME 10.1 FL (6.5-11.5); MONOCYTE# 0.5 X10e3 (0-1.0); MONOCYTE% 3.2 % (3.0-12.0); NEUTROPHIL# 14.5 X10e3 (1.5-7.1); NEUTROPHIL% 89.4 % (40-75); PLATELET COUNT 227 X10e3 (140-420); RED BLOOD COUNT 5.01 X10e (3.90-5.60); WHITE BLOOD COUNT 16.3 X10e3 (4.0-10.5)
[2016-12-31 08:19] LABS: DIFF IND YES
[2016-12-31 08:27] LABS: PARTIAL THROMBOPLASTIN TIME 25.5 SECONDS (23.5-31.3); PROTHROMBIN TIME (PATIENT) 10.2 SECONDS (9.6-11.5)
[2016-12-31 08:34] LABS: ARTERIAL BLD GAS O2 SATURATION 94.2 % (90.0-100.0); ARTERIAL BLOOD GAS CARBOXY HB 1.8 %sat (0.0-9.0); ARTERIAL BLOOD GAS HCO3 14.5 mmol/L; ARTERIAL BLOOD GAS PCO2 30.4 mmHg (35.0-45.0); ARTERIAL BLOOD GAS pH 7.286 (7.350-7.450)
[2016-12-31 08:35] LABS: ARTERIAL BLOOD GAS ALLEN TEST NORMAL; ARTERIAL BLOOD GAS ART SITE RIGHT RADIAL; ARTERIAL BLOOD GAS DELIVERY ROOM AIR; ARTERIAL DRAW? YES
[2016-12-31 08:36] LABS: POC - CKMB 2.7 ng/mL (0.0-7.9); POC - TROPONIN <0.05 ng/mL (<=0.05)
[2016-12-31 08:42] LABS: PLATELET ESTIMATE NORMAL (NORMAL); POIKILOCYTOSIS SL
[2016-12-31 08:48] LABS: ALBUMIN SERUM 4.1 g/dL (3.5-5.0); ALKALINE PHOSPHATASE 146 U/L (32-92); ALT (SGPT) 18 U/L (10-40); AST (SGOT) 23 U/L (10-42); BETA HYDROXYBUTYRATE 7.86 MMOL/L (0.02-0.27); BILIRUBIN, DIRECT 0.2 mg/dL (0.0-0.2); BILIRUBIN,INDIRECT 1.6 mg/dL (0.0-0.9); BILIRUBIN,TOTAL 1.8 mg/dL (0.2-2.0); BLOOD UREA NITROGEN 21 mg/dL (9-23); CALCIUM SERUM 9.4 mg/dL (8.4-10.2); CARBON DIOXIDE 14 mmol/L (22-31); CHLORIDE 85 mmol/L (100-111); CPK (CREATINE PHOSPHOKINASE) 354 IU/L (36-174); CREATININE SERUM 1.2 mg/dL (0.6-1.4); GLOM FILT RATE Estimated 81.8 mL/min (>60); PHOSPHOROUS 6.1 mg/dL (2.5-4.6); POTASSIUM 4.7 mmol/L (3.5-5.1); SODIUM 128 mmol/L (135-145)
[2016-12-31 08:52] LABS: ALCOHOL BLOOD <5 mg/dL (0); GLUCOSE FASTING 587 mg/dL (70-110)
[2016-12-31 08:56] LABS: URINE SOURCE CLEAN CATCH
[2016-12-31 09:12] LABS: URINE APPEARANCE CLEAR; URINE BILIRUBIN NEG (NEG); URINE BLOOD NEG (NEG); URINE COLOR YELLOW; URINE GLUCOSE >1000 MG/DL (NEG); URINE KETONE 3+ (NEG); URINE LEUKOCYTE ESTERASE NEG (NEG); URINE NITRATE NEG (NEG); URINE PROTEIN NEG (NEG); URINE SPECIFIC GRAVITY 1.027 (1.003-1.035); URINE UROBILINOGEN 0.2 MG/DL (NEG)
[2016-12-31 09:20] LABS: CULTURE INDICATED? NO
[2016-12-31 09:26] LABS: AMPHETAMINE NEG (NEG); BARBITURATES NEG (NEG); BENZODIAZEPINES NEG (NEG); COCAINE NEG (NEG); MARIJUANA POS (NEG); OPIATES POS (NEG); TRICYCLIC ANTIDEPRESSANTS NEG (NEG); U METHADONE NEG (NEG)
[2016-12-31] MEDS ORDERED: CLEOCIN150 M1 PO (09:41)
[2016-12-31] MEDS ORDERED: NEURONTIN800 MG PO (09:41)
[2016-12-31] MEDS ORDERED: HUMALOG100 UNIT/1 SUBQ (09:42)
[2016-12-31] MEDS ORDERED: LANTUS100 U/ML SUBQ (09:42)
[2016-12-31 12:42] LABS: LIPASE 12 U/L (22-51)
[2016-12-31 12:43] LABS: AMYLASE 5 U/L (0-46)
[2016-12-31 12:50] LABS: BUN/CREATININE RATIO 21.25; CALCIUM SERUM 8.5 mg/dL (8.4-10.2); CREATININE SERUM 0.8 mg/dL (0.6-1.4); GLOM FILT RATE Estimated 121.6 mL/min (>60); POTASSIUM 4.4 mmol/L (3.5-5.1)
[2016-12-31 17:08] LABS: BUN/CREATININE RATIO 21.42; CALCIUM SERUM 8.5 mg/dL (8.4-10.2); CREATININE SERUM 0.7 mg/dL (0.6-1.4); GLOM FILT RATE Estimated 128.5 mL/min (>60); POTASSIUM 4.1 mmol/L (3.5-5.1)
[2016-12-31 22:34] LABS: BUN/CREATININE RATIO 18.57; CALCIUM SERUM 8.3 mg/dL (8.4-10.2); CREATININE SERUM 0.7 mg/dL (0.6-1.4); GLOM FILT RATE Estimated 128.5 mL/min (>60); POTASSIUM 3.7 mmol/L (3.5-5.1)
== END 2017-01-01 11:00 | disposition home or self-care (01) | DRG 638 ==
LOC: CED 08:15 → CEDOF 10:45 → C5C 01-01 01:37
PROVIDERS: Emergency Medicine; Physician Assistant Medical
DX: E10.10 Type 1 diabetes mellitus with ketoacidosis without coma (principal); E87.1 Hypo-osmolality and hyponatremia; I95.9 Hypotension, unspecified; Z79.4 Long term (current) use of insulin; Z91.14 Patient's other noncompliance with medication regimen; F31.9 Bipolar disorder, unspecified; F43.10 Post-traumatic stress disorder, unspecified; K04.7 Periapical abscess without sinus; F17.210 Nicotine dependence, cigarettes, uncomplicated; D72.829 Elevated white blood cell count, unspecified; F12.10 Cannabis abuse, uncomplicated
CPT/HCPCS: 36415; 36600; 71010; 74000; 80048; 80076; 80307; 81003; 82010; 82150; 82550; 82553; 82803; 82947; 83036; 83605; 83690; 83735; 84100; 84484; 85025; 85610; 85730; 87040; 93005; 96360; 99285; C9113; G0480; J1170; J1815; J2405

== ENCOUNTER 2017-01-18 10:19 | Emergency (ER) | payer OTHER ==
--- NOTE | ~2017-01-18 | CR2 ---
[facility]. [facility] A Service of [facility] & [facility] / [facility] RADIOLOGY TEXT RESULTS PATIENT: NAYELI MCMAHON LOCATION: SED : [birth year] UNIT #: [id number] AGE: [address]: Dianne Seth MD SEX: M ORDER DR: [id number] [place] [id number] E MR#: [id number] Acc #: [id number] NAME: NAYELI MCMAHON : 1990 SEX: M STUDY DATE/TIME: 01/18/2017 11:32 UNIT: SED ROOM: STUDY DESCRIPTION: CR Abdomen Acute Series Attending Physician: Dianne Seth M.D. Ordering Physician: Dianne Seth M.D. Primary Care Physician: Benito Martinez M.D. MEDICAL IMAGING REPORT This report is preliminary unless electronic signature is present. EXAM Acute abdominal series in 3 views 01/18/2017 COMPARISON 12/31/2016 supine AP abdomen. HISTORY Nausea, vomiting, abdominal pain since yesterday. FINDINGS The chest radiograph shows no acute disease. Bowel gas pattern is normal. No evidence of free air or obstruction. IMPRESSION Normal negative acute abdominal series. Dictated by... Jai Elizondo M.D. THIS IS AN ELECTRONICALLY VERIFIED REPORT Jai Elizondo M.D. at 01/19/2017 3:53 PM FERNANDEZ/eugenia TD: 01/18/2017 12:40 JOB #: [id number] MEDICAL IMAGING REPORT Page 1 of 1
[~2017-01-18 10:19] MED LIST changes: +CLEOCIN150 M1 PO; +HUMALOG100 UNIT/1 SUBQ
[2017-01-18] MEDS ORDERED: PROTONIX (10:23)
[2017-01-18] MEDS ORDERED: HUMALOG100 UNIT/2 (10:23)
[2017-01-18] MEDS ORDERED: PRILOSEC PO (10:23)
[2017-01-18] MEDS ORDERED: DEPRESSION MED (10:24)
[2017-01-18 11:19] LABS: BASOPHIL# 0.1 X10e3 (0-0.3); EOSINOPHIL% 0.3 % (0.0-7.0); HEMATOCRIT 43.7 % (38.0-50.0); HEMOGLOBIN 14.8 gm/dL (13.0-16.0); LYMPHOCYTE# 1.3 X10e3 (1.0-3.5); MEAN CELL VOLUME 96.5 FL (83-96); MEAN CORPUSCULAR HEMOGLOBIN 32.6 PG (28-34); MEAN CORPUSCULAR HGB CONC 33.8 g/dL (30-36); MEAN PLATELET VOLUME 9.5 FL (6.5-11.5); MONOCYTE# 0.4 X10e3 (0-1.0); MONOCYTE% 5.9 % (3.0-12.0); NEUTROPHIL# 5.7 X10e3 (1.5-7.1); NEUTROPHIL% 75.8 % (40-75); PLATELET COUNT 214 X10e3 (140-420); RED BLOOD COUNT 4.53 X10e (3.90-5.60); RED CELL DISTRIBUTION WIDTH 13.9 % (11.0-15.5); WHITE BLOOD COUNT 7.5 X10e3 (4.0-10.5)
[2017-01-18 11:20] LABS: DIFF IND NO
[2017-01-18 11:25] LABS: URINE SOURCE CLEAN CATCH
[2017-01-18 11:27] LABS: URINE APPEARANCE CLEAR; URINE BILIRUBIN NEG (NEG); URINE BLOOD TRACE-LYSED (NEG); URINE COLOR YELLOW; URINE GLUCOSE 300 MG/DL (NORM); URINE LEUKOCYTE ESTERASE NEG (NEG); URINE NITRATE NEG (NEG); URINE PROTEIN NEG (NEG); URINE SPECIFIC GRAVITY <=1.005 (1.003-1.035); URINE UROBILINOGEN 0.2 MG/DL (NORM)
[2017-01-18 11:29] LABS: ALBUMIN SERUM 4.1 g/dL (3.5-5.0); ALKALINE PHOSPHATASE 106 U/L (32-92); ALT (SGPT) 16 U/L (10-40); AST (SGOT) 30 U/L (10-42); BILIRUBIN, DIRECT 0.1 mg/dL (0.0-0.2); BILIRUBIN,INDIRECT 0.6 mg/dL (0.0-0.9); BILIRUBIN,TOTAL 0.7 mg/dL (0.2-2.0); BLOOD UREA NITROGEN 12 mg/dL (9-23); BUN/CREATININE RATIO 13.33; CALCIUM SERUM 9.6 mg/dL (8.4-10.2); CARBON DIOXIDE 27 mmol/L (22-31); CHLORIDE 95 mmol/L (100-111); CREATININE SERUM 0.9 mg/dL (0.6-1.4); GLOM FILT RATE Estimated 115.8 mL/min (>60); GLUCOSE FASTING 343 mg/dL (70-110); LIPASE 21 U/L (22-51); POTASSIUM 3.4 mmol/L (3.5-5.1); PROTEIN TOTAL SERUM 7.3 g/dL (6.0-8.3); SODIUM 135 mmol/L (135-145)
[2017-01-18 11:30] LABS: ALCOHOL BLOOD <5 mg/dL ([, 0])
[2017-01-18 11:36] LABS: MICRO INDICATED? YES; URINE KETONE 3+ (NEG)
[2017-01-18 11:37] LABS: AMPHETAMINE NEG (NEG); BARBITURATES NEG (NEG); BENZODIAZEPINES NEG (NEG); COCAINE NEG (NEG); MARIJUANA POS (NEG); OPIATES NEG (NEG); TRICYCLIC ANTIDEPRESSANTS NEG (NEG); U METHADONE NEG (NEG)
[2017-01-18 11:38] LABS: CULTURE INDICATED? NO; URINE BACTERIA NEG (NEG); URINE RBC 0-2 /[HPF] (0-2); URINE WBC 0-2 /[HPF] (0-5)
== END 2017-01-18 13:01 | disposition home or self-care (01) ==
LOC: SED 10:19
PROVIDERS: Student in an Organized Health Care Education/Training Program
DX: R11.2 Nausea with vomiting, unspecified (principal); E10.65 Type 1 diabetes mellitus with hyperglycemia; F12.10 Cannabis abuse, uncomplicated; E10.40 Type 1 diabetes mellitus with diabetic neuropathy, unspecified; Z79.4 Long term (current) use of insulin; F17.200 Nicotine dependence, unspecified, uncomplicated
CPT/HCPCS: 36415; 74022; 80048; 80076; 80307; 81003; 82947; 83690; 85025; 96361; 96374; 96375; 99284; C9113; G0480; J1885; J2405; J2550

== ENCOUNTER 2017-01-19 11:30 | Observation (INO) | payer OTHER ==
--- NOTE | ~2017-01-19 | CR72 ---
[facility] A Service of [facility] & [facility] RADIOLOGY TEXT RESULTS PATIENT: NAYELI MCMAHON LOCATION: [facility] 230-01 : [birth year] UNIT #: [id number] AGE: [address]: Ruben Murray MD SEX: M ORDER DR: [id number] [facility] [address] [place], [place] [address] [id number] I MR#: [id number] Acc #: [id number] NAME: NAYELI MCMAHON : 1990 SEX: M STUDY DATE/TIME: 01/19/2017 16:39 UNIT: [facility] ROOM: [facility] STUDY DESCRIPTION: CR Chest Single View Portable Attending Physician: Ruben Murray M.D. Ordering Physician: Ruben Murray M.D. Primary Care Physician: Benito Martinez M.D. MEDICAL IMAGING REPORT This report is preliminary unless electronic signature is present EXAM Portable chest. INDICATION Shortness of breath and weakness and nausea and vomiting today. Diabetic ketoacidosis. COMPARISON 12/31/2016 FINDINGS The lungs are well expanded and clear. The heart size is normal. The visualized osseous structures are unremarkable. IMPRESSION No active disease. Dictated by... Paul Alvarado M.D. THIS IS AN ELECTRONICALLY VERIFIED REPORT Paul Alvarado M.D. at 01/20/2017 9:33 AM MICHELLE/kenny TD: 01/19/2017 18:15 JOB #: [id number] MEDICAL IMAGING REPORT Page 1 of 1 COPY
--- NOTE | ~2017-01-19 | A ---
[facility] Nutrition Therapy DATE: 01/20/17 Patient: NAYELI SPEARSEDY Physician: [place] Address: [address] [facility] Room/Bed: [address], Zip: [place] [address] Admit Date: 01/19/17 Date of : [birth year] Height: 6 0 Weight: 107 48.53 NUTRITIONAL ASSESSMENT: REASON: LOW BMI + DX PT IS 26 Y.O. MALE ADMITTED FOR DKA PMH: POORLY CONTROLLED T1DM, RECURRENT DKA, PERIPHERAL NEUROPATHY, ASTHMA, BIPOLAR DISORDER, GERD, PTSD, HX OF PARTIAL SMALL BOWEL OBSTRUCTION Anthropometrics: 6'0", WT: 106# (48 KG), BMI: 14.4, 60%IBW Labs: GLU: 46, BUN: 8, CA+:8.2, PHOS: 1.9, A1c: 10.7 (REFLECTS POOR GLUCOSE MANGEMENT) Meds: LEVEMIR, NOVOLOG, KCL, ZOFRAN, PROTONIX, PHOS-NAK, NACL I/O & Bowel function: 1590/300 Skin Integrity: TATTOOS OBSERVED Estimated Nutrition Needs: INCREASED NUTRIENT NEEDS 2' PT UNDERWEIGHT, PMH, WEIGHT LOSS NOTED PAST 3 YEARS Assessment: CHART REVIEWED AND EVENTS NOTED. PT SEEN FOR LOW BMI + DX. PT REPORTS DECREASED PO INTAKE 2' DECREASED APPETITE PAST FEW DAYS D/T "NOT FEELING WELL". PT REPORTS GENERAL GOOD PO INTAKE AND APPETITE. PT REPORTS LOSING ~50-60# PAST 3 YEARS 2' NONCOMPLIANT W/DM. PT NOTES HIS CURRENT WEIGHT HAS BEEN ~110#. THIS RD ENCOURAGED ADEQUATE KCAL AND PROTEIN INTAKE, PT AGREED TO GLUCERNA SHAKES TID W/MEALS. RD ALSO PROVIDED WRITTEN AND VERBAL CC DIET EDUCATION. PT DEMONSTRATED UNDERSTANDING OF THE TOPIC. PT REPORTED NO DIET QUESTIONS. RD TO FOLLOW. Dx: UNDERWEIGHT R/T PMH, LIFESTYLE AEB BMI OF 14.4, 60%IBW, WEIGHT LOSS NOTED PAST 3 YEARS (~50-60#). -IMPAIRED GLYCEMIC CONTROL R/T DX, PMH AEB ELEVATED BLOOD SUGAR LEVELS, A1c OF 10.7. Intervention: 1. CC DIET (60 GRAMS CARBS PER MEAL) 2. GLUCERNA SHAKES TID 3. CC DIET EDUCATION Monitoring, Evaluation and Goals: 1. ORAL INTAKE; CONSUME MEALS W/NO C/O N/V/D (PO>50%) 2. WEIGHTS; PROMOTE GRADUAL WEIGHT GAIN; PREVENT FURTHER WEIGHT LOSS 3. LABS; WNL: GLU, ELECTROLYTES [facility] Nutrition Therapy DATE: 01/20/17 Patient: NAYELI SPEARSEDY Physician: [place]LE Address: [address] [facility] Room/Bed: [address] [place] [address], Zip: [place] [address] Admit Date: 01/19/17 Date of : [birth year] Height: 6 0 Weight: 107 48.53 MONITOR: -PO INTAKE/APPETITE -SUPPLEMENT INTAKE -WEIGHTS -EDUCATION NEEDS -LABS (GLU) Recommendations: 1. PLEASE ORDER VANILLA GLUCERNA SHAKES TID W/MEALS 2. CONSIDER CHANGING CURRENT DIET ORDER TO 75 GRAMS/CARBS PER MEAL 3. APPRECIATE FAMILY AND STAFF TO ENCOURAGE ADEQUATE KCAL AND PROTEIN INTAKE 2' PT UNDERWEIGHT RD WILL F/U PER PROTOCOL PT IS MODERATELY COMPROMISED Respectfully, ASTRID PALUMBO MS, RD, LD Food and Nutritional Services [facility] cc: client file
--- NOTE | ~2017-01-19 | CO ---
Unit #: [id number] #: [id number] Patient: NAYELI MCMAHON [id number] [address] [place], [place] [address] [id number] I MR#: [id number] NAME: NAYELI MCMAHON ROOM: [facility] Age: 26 Sex: M Admission Date: 01/19/2017 : 1990 Attending Physician: Ruben Murray M.D. Primary Care Physician: Benito Martinez M.D. CONSULTATION REPORT REASON FOR CONSULT The uncontrolled diabetes mellitus. HISTORY OF PRESENT ILLNESS Mr. Nayeli Mcmahon is a 26-year-old male who has a history of type 1 diabetes mellitus, very poor compliance, multiple admission with the diabetic ketoacidosis, who presented to the emergency room at the [facility] not feeling well, had some nausea and high blood sugar, found to have positive acetone but there was no metabolic acidosis. He was transferred to the unit bed for insulin drip. I have been asked to see the patient for further management. PAST MEDICAL HISTORY 1. Type 1 diabetes mellitus, poorly compliant. 2. Bipolar disorder. 3. Post traumatic stress disorder. 4. GERD. PAST SURGICAL HISTORY Exploratory laparotomy, secondary to small bowel obstruction, with partial small bowel resection. SOCIAL HISTORY Continues to smoke. Positive drug abuse, marijuana and opiates, Declines alcohol. FAMILY HISTORY Noncontributory. ALLERGIES None. MEDICATIONS The medication list is reviewed: 1. Humalog 12 units with meals. 2. Lantus 20 units b.i.d. REVIEW OF SYSTEMS The patient's 10-point review of systems is completed, is unremarkable PHYSICAL EXAMINATION GENERAL: He is lying comfortably, in no acute distress. VITAL SIGNS: Afebrile with temperature 98.1. Pulse is 61. Respiration Unit #: [id number] #: [id number] Patient: NAYELI MCMAHON is 16. Blood pressure 109/66. HEENT: EOMI. Pupils equally react to light. NECK: Supple. No thyromegaly noted. CHEST: Good air entry. No wheezing. CVS: Regular rhythm. S1 and S2. No murmurs. ABDOMEN: Soft, nontender. Bowel sounds positive. EXTREMITIES: No edema or ulcers noted. NEUROLOGIC: Nonfocal, mobbing all extremities. SKIN: Normal. DIAGNOSTIC STUDIES LABORATORY: Labs were reviewed: Sodium 137, potassium 3.4, chloride 105, CO2 is 25, phosphorus is 1.9, A1C 9.9. ASSESSMENT 1. Type 1 diabetes mellitus, poorly controlled, with positive acetone. 2. Dehydration. 3. Hypokalemia. 4. Hypophosphatemia. PLAN Will discontinue insulin drip and start patient on Levemir subcu insulin 15 units subcu one dose now followed by the 10 units subcu b.i.d., NovoLog 5 units each meal. Advance diet as tolerated to 60 g consistent carb diet. Accu-Chek a.c. and h.s. Cover with supplemental insulin as needed. Replace potassium and phosphorus. Change IV fluids to normal saline. Thank you again for the consultation. Dictated by... Guevara Mckeon/gino TD: 01/19/2017 22:08 JOB #: [id number] CONSULTATION REPORT Page 1 of 1 X Naa Santos MD X CONSULTATION REPORT
--- NOTE | ~2017-01-19 | CT4 ---
[facility] A Service [facility] RADIOLOGY TEXT RESULTS PATIENT: NAYELI MCMAHON LOCATION: C2A : [birth year] UNIT #: [id number] AGE: [address]: Ruben Murray MD SEX: M ORDER DR: [id number] [address] [address] [id number] E MR#: [id number] Acc #: [id number] NAME: NAYELI MCMAHON : 1990 SEX: M STUDY DATE/TIME: 01/19/2017 11:29 UNIT: SED ROOM: STUDY DESCRIPTION: CT Abd and Pelv Wo Cont Attending Physician: William Goldsmith M.D. Ordering Physician: William Goldsmith M.D. Primary Care Physician: Benito Martinez M.D. MEDICAL IMAGING REPORT This report is preliminary unless electronic signature is present. EXAM CT of the abdomen and pelvis. 01/19/2017 COMPARISON 10/11/2016 HISTORY Nausea vomiting, weakness for 3 days. TECHNIQUE Axial imaging of the abdomen and pelvis was performed without contrast media compared to the study of 10/11. This CT exam was performed with one or more of the following radiation dose reduction techniques: automatic exposure control, adjustment of mA and/or kV according to patient size, and iterative reconstruction. FINDINGS Lung bases in this patient are clear. Scans through the liver are normal. The gallbladder is unremarkable. Spleen is normal. The stomach appears moderately distended. Right and left kidney are normal. The pancreas appears normal. The bladder appears moderately distended. There are postsurgical changes identified in the right lower quadrant. No free fluid is identified. CONCLUSION Postsurgical changes right lower quadrant. Relatively distended stomach. CT of the abdomen and pelvis is otherwise unremarkable Dictated by... Nii Ca M.D. [facility] A Service [facility] RADIOLOGY TEXT RESULTS PATIENT: NAYELI MCMAHON LOCATION: C2A : [birth year] UNIT #: [id number] AGE: [address]: Ruben Murray MD SEX: M ORDER DR: THIS IS AN ELECTRONICALLY VERIFIED REPORT Nii Ca M.D. at 01/20/2017 7:10 AM Adriana TD: 01/19/2017 14:14 JOB #: [id number] MEDICAL IMAGING REPORT Page 1 of 1
--- NOTE | ~2017-01-19 | HP ---
Unit #: [id number] #: [id number] Patient: NAYELI MCMAHON [id number] [facility] [address] [place], [place] [address] [id number] I MR#: [id number] NAME: NAYELI MCMAHON ROOM: [facility] Age: 26 Sex: M Admission Date: 01/19/2017 : 1990 Attending Physician: uRben Murray M.D. Primary Care Physician: Benito Martinez M.D. HISTORY AND PHYSICAL ADMISSION DIAGNOSES 1. Diabetic ketoacidosis. 2. Bipolar disorder. 3. History of posttraumatic stress disorder. 4. History of neuropathy. 5. Noncompliance. 6. History of gastroesophageal reflux disease. HISTORY OF PRESENT ILLNESS Mr. Mcmahon is a 26-year-old gentleman, patient of Dr. Kraus who apparently went to an [facility] ER with the complaints of abdominal pain, cramping, and some nausea and vomiting. He was worked in the [facility] ER and was diagnosed with DKA. Subsequently, started on the IV and transferred to [facility]. I am seeing him in ICU bed 13. Currently, he denies any other complaints. Denies any chest pain, shortness of air, dyspnea, fever, chills or diarrhea. He tells me that his basal insulin was increased by his primary care physician, Dr. Kraus, a couple days prior. However, he did not follow his recommendations, afraid of getting bottomed out. He tells me that he wants to be back on sliding scale insulin. REVIEW OF SYSTEMS Twelve-point review of systems on this patient is basically negative except as above. PAST MEDICAL HISTORY Significant for: 1. History of insulin-dependent diabetes type 1. 2. Bipolar disorder. 3. PTSD. 4. GERD. 5. Neuropathy. PAST SURGICAL HISTORY Significant for: Exploratory laparotomy secondary to a small bowel obstruction. HOME MEDICATIONS I do not have this in front of me but this will require verifying with the pharmacy and the patient will be restarted accordingly. ALLERGIES No known drug allergies. Unit #: [id number] #: [id number] Patient: NAYELI MCMAHON SOCIAL HISTORY He smokes cigarettes and also smokes marijuana. Denies any IV drug abuse. FAMILY HISTORY Unremarkable. PHYSICAL EXAMINATION VITAL SIGNS: BP 119/66, heart rate 66, respirations 18, temperature 98.1. GENERAL: The patient is a 26-year-old gentleman not in acute distress. HEENT: Head is atraumatic. Pupils equal, round, reactive to light and accommodation. Extraocular muscles are intact. Oropharynx is significant for missing teeth and poor dentition. NECK: Supple. No mass, no JVD, no bruits. LUNGS: Diminished at the bases but otherwise clear. HEART: S1, S2. No murmurs. ABDOMEN: Soft, tender to palpation all over without any rebound. Bowel sounds are present but diminished. LOWER EXTREMITIES: Without any cyanosis, clubbing, or edema. NEUROLOGIC: Patient is intact without any focal deficits and answering questions appropriately. DIAGNOSTIC STUDIES LABORATORY: Last chemistry was significant for potassium 3.4, bicarb was 25, alkaline phosphatase 109, otherwise unremarkable. CBC unremarkable except for MCV 97.2. ASSESSMENT AND PLAN 1. DKA which looks like it is resolving. Continue per DKA protocol. Discussed with patient about importance of compliance with the primary care physician's recommendations. Dr. Santos to evaluate the patient, most likely will be transitioned to a subcu insulin this evening and moved out of the ICU. 2. Insulin-dependent diabetes, as above. Would appreciate Dr. Santos's input for readjusting his home insulin regime. 3. History of post traumatic stress disorder. Continue home medications. 4. History of neuropathy. Continue home Neurontin. 5. GI and DVT prophylaxis with PPI and SCDs. Dictated by Ruben Murray M.D. OC/abdullahi TD: 01/19/2017 18:00 JOB #: [id number] Unit #: [id number] #: [id number] Patient: NAYELI MCMAHON HISTORY AND PHYSICAL Page 1 of 1 X Ruben Murray MD HISTORY AND PHYSICAL
--- NOTE | ~2017-01-19 | EKG ---
PATIENT: NAYELI MCMAHON UNIT #: [id number] Ventricular Rate: 70 BPM Atrial Rate: 70 BPM P-R Interval: 108 ms QRS Duration: 82 ms Q-T Interval: 344 ms QTC Calculation(Bezet): 371 ms P Keyes: 41 degrees Calculated R Keyes: 91 degrees Calculated T Keyes: 52 degrees Diagnosis Line: Sinus rhythm with short RI Diagnosis Line: Rightward axis Diagnosis Line: Borderline ECG Diagnosis Line: When compared with ECG of 31-DEC-2016 08:17, Diagnosis Line: Nonspecific T wave abnormality now evident in Diagnosis Line: Inferior leads Diagnosis Line: Nonspecific T wave abnormality now evident in Diagnosis Line: Lateral leads Diagnosis Line: QT has shortened Diagnosis Line: Confirmed by CHRISTIAN HANCOCK MD ([id number]) on Diagnosis Line: 01/20/2017 11:09:19 PM INTERPRETING MD: ZACKERY
--- NOTE | ~2017-01-19 | DS ---
Unit #: [id number] #: [id number] Patient: NAYELI MCMAHON [id number] [address] [address] [id number] I MR#: [id number] NAME: NAYELI MCMAHON ROOM: 230 Age: 26 Sex: M Admission Date: 01/19/2017 : 1990 Discharge Date: 01/20/2017 Attending Physician: Ruben Murray M.D. Primary Care Physician: Benito Martinez M.D. DISCHARGE SUMMARY DISCHARGE DIAGNOSES 1. Status post diabetic ketoacidosis. 2. Insulin-dependent diabetes. 3. Bipolar disorder. 4. History of post traumatic stress disorder. 5. Gastroesophageal reflux disease. 6. Noncompliance. CONSULTANTS Dr. Santos, endocrinology. DIAGNOSTIC STUDIES 1. Chest x-ray unremarkable. 2. CT abdomen and pelvis done at [facility] ER which was unremarkable. HISTORY For history of hospital stay, please refer to History and Physical done by me for this patient. Patient was admitted to ICU. Was treated with the DKA protocol. He was evaluated by Endocrinology. Currently made the transition to subcu regime. Tolerates p.o. well. No abdominal pain. No nausea or vomiting. Stable to be discharged. DISCHARGE MEDICATIONS 1. Neurontin 800 mg q.i.d. 2. Levemir 10 units subcu b.i.d. 3. NovoLog 5 units subcu three times with meals. 4. Prilosec 40 mg daily. DISPOSITION Going home. FOLLOWUP 1. Dr. Kraus in 2-3 days. 2. Outpatient followup with Dr. Santos next week. DISCHARGE INSTRUCTIONS The patient was counseled on the importance of adhering to the insulin regime at home. Patient demonstrates understanding. Unit #: [id number] #: [id number] Patient: NAYELI MCMAHON Dictated by... Ruben Murray M.D. OC/abdullahi TD: 01/20/2017 22:15 JOB #: [id number] DISCHARGE SUMMARY Page 1 of 1 X Ruben Murray MD X DISCHARGE SUMMARY
[~2017-01-19 11:30] MED LIST changes: +DEPRESSION MED; +HUMALOG100 UNIT/2; +PRILOSEC PO; +PROTONIX
[2017-01-19 11:35] LABS: BASOPHIL% 0.5 % (0-2.5); HEMATOCRIT 45.9 % (38.0-50.0); HEMOGLOBIN 15.2 gm/dL (13.0-16.0); LYMPHOCYTE# 1.2 X10e3 (1.0-3.5); LYMPHOCYTE% 14.1 % (17.0-45.0); MEAN CELL VOLUME 97.2 FL (83-96); MEAN CORPUSCULAR HEMOGLOBIN 32.2 PG (28-34); MEAN CORPUSCULAR HGB CONC 33.1 g/dL (30-36); MEAN PLATELET VOLUME 8.9 FL (6.5-11.5); MONOCYTE# 0.3 X10e3 (0-1.0); NEUTROPHIL% 81.4 % (40-75); PLATELET COUNT 232 X10e3 (140-420); RED BLOOD COUNT 4.72 X10e (3.90-5.60); RED CELL DISTRIBUTION WIDTH 13.9 % (11.0-15.5); WHITE BLOOD COUNT 8.6 X10e3 (4.0-10.5)
[2017-01-19 11:36] LABS: URINE APPEARANCE CLEAR; URINE BILIRUBIN NEG (NEG); URINE BLOOD NEG (NEG); URINE COLOR YELLOW; URINE GLUCOSE 300 MG/DL (NORM); URINE LEUKOCYTE ESTERASE NEG (NEG); URINE NITRATE NEG (NEG); URINE PH 5.5 (5-8); URINE PROTEIN NEG (NEG); URINE UROBILINOGEN 0.2 MG/DL (NORM)
[2017-01-19 11:44] LABS: DIFF IND NO
[2017-01-19 11:46] LABS: MICRO INDICATED? NO; URINE KETONE 3+ (NEG); URINE SOURCE CLEAN CATCH
[2017-01-19 11:54] LABS: ALBUMIN SERUM 4.3 g/dL (3.5-5.0); BILIRUBIN, DIRECT 0.1 mg/dL (0.0-0.2); BILIRUBIN,INDIRECT 0.8 mg/dL (0.0-0.9); BILIRUBIN,TOTAL 0.9 mg/dL (0.2-2.0); CALCIUM SERUM 9.3 mg/dL (8.4-10.2); CREATININE SERUM 1.3 mg/dL (0.6-1.4); GLOM FILT RATE Estimated 74.3 mL/min (>60); POTASSIUM 3.7 mmol/L (3.5-5.1); PROTEIN TOTAL SERUM 7.6 g/dL (6.0-8.3)
[2017-01-19 16:49] LABS: ARTERIAL BLD GAS O2 SATURATION 94.6 % (90.0-100.0); ARTERIAL BLOOD GAS CARBOXY HB 1.8 %sat (0.0-9.0); ARTERIAL BLOOD GAS HCO3 26.5 mmol/L; ARTERIAL BLOOD GAS PCO2 40.3 mmHg (35.0-45.0); ARTERIAL BLOOD GAS PO2 82.4 mmHg (80.0-100); ARTERIAL BLOOD GAS pH 7.425 (7.350-7.450)
[2017-01-19 16:50] LABS: ARTERIAL BLOOD GAS ALLEN TEST NORMAL; ARTERIAL BLOOD GAS ART SITE RIGHT RADIAL; ARTERIAL DRAW? YES
[2017-01-19 17:22] LABS: BUN/CREATININE RATIO 13.75; CALCIUM SERUM 8.3 mg/dL (8.4-10.2); CREATININE SERUM 0.8 mg/dL (0.6-1.4); GLOM FILT RATE Estimated 121.6 mL/min (>60); PHOSPHOROUS 1.9 mg/dL (2.5-4.6); POTASSIUM 3.4 mmol/L (3.5-5.1)
[2017-01-19 22:50] LABS: BUN/CREATININE RATIO 14.28; CALCIUM SERUM 7.9 mg/dL (8.4-10.2); CREATININE SERUM 0.7 mg/dL (0.6-1.4); GLOM FILT RATE Estimated 128.5 mL/min (>60); POTASSIUM 3.5 mmol/L (3.5-5.1)
[2017-01-20 04:11] LABS: HEMATOCRIT 38.9 % (38.0-50.0); MEAN CELL VOLUME 96.5 FL (83-96); MEAN CORPUSCULAR HGB CONC 33.2 g/dL (30-36); MEAN PLATELET VOLUME 8.3 FL (6.5-11.5); RED BLOOD COUNT 4.03 X10e (3.90-5.60); RED CELL DISTRIBUTION WIDTH 13.9 % (11.0-15.5)
[2017-01-20 04:17] LABS: HEMOGLOBIN 12.9 gm/dL (13.0-16.0)
[2017-01-20 04:33] LABS: BUN/CREATININE RATIO 11.42; CALCIUM SERUM 8.2 mg/dL (8.4-10.2); CREATININE SERUM 0.7 mg/dL (0.6-1.4); GLOM FILT RATE Estimated 128.5 mL/min (>60); MAGNESIUM 1.8 mg/dL (1.6-3.0); POTASSIUM 3.1 mmol/L (3.5-5.1)
[2017-01-20] MEDS ORDERED: LEVEMIR (21:00)
[2017-01-20] MEDS ORDERED: NOVOLOG100 U/ML (21:00)
== END 2017-01-20 21:15 | disposition home or self-care (01) ==
LOC: SED 11:30 → CEDOF 12:14 → CICCU3 16:06 → C2A 22:50
PROVIDERS: Emergency Medicine; Hospitalist
DX: E10.10 Type 1 diabetes mellitus with ketoacidosis without coma (principal); Z79.4 Long term (current) use of insulin; F31.9 Bipolar disorder, unspecified; K21.9 Gastro-esophageal reflux disease without esophagitis; Z91.19 Patient's noncompliance with other medical treatment and regimen; F17.210 Nicotine dependence, cigarettes, uncomplicated; E86.0 Dehydration; E87.6 Hypokalemia; E83.39 Other disorders of phosphorus metabolism; G62.9 Polyneuropathy, unspecified
CPT/HCPCS: 36415; 36600; 71010; 74176; 80048; 80076; 81003; 82010; 82150; 82803; 82947; 83036; 83690; 83735; 84100; 84132; 85025; 85027; 87040; 93005; 96361; 96372; 96374; 96375; 96376; 99285; C9113; G0378; J0500; J1815; J1885; J2270; J2405; J3475

== ENCOUNTER 2017-02-16 14:36 | Inpatient (IN) | payer OTHER ==
--- NOTE | ~2017-02-16 | DS ---
Unit #: [id number] #: [id number] Patient: NAYELI MCMAHON [id number] [address] [place], [place] [address] [id number] I MR#: [id number] NAME: NAYELI MCMAHON ROOM: 454 Age: 26 Sex: M Admission Date: 02/16/2017 : 1990 Discharge Date: 02/17/2017 Attending Physician: Lauren Gutierrez M.D. Primary Care Physician: Benito Martinez M.D. DISCHARGE SUMMARY ADMISSION/DISCHARGE DIAGNOSES 1. Abdominal pain, which is resolved status post GI evaluation, status post EGD. 2. Esophagitis, status post EGD. Continue Prilosec per GI. 3. Pseudohyponatremia, likely secondary to hyperglycemia. 4. Insulin dependent diabetes. 5. History of depression and bipolar disorder. DISCHARGE MEDICATIONS 1. Lantus 6 units subcutaneous b.i.d. 2. Humalog 12 units subcutaneous t.i.d. 3. Home depression medication. 4. There is a new prescription for Omeprazole [address]o. q.a.m. per Dr. Ruiz instead of Prilosec. HOSPITAL COURSE The patient is a 26-year-old gentleman I know secondary to prior admissions. He came in with complaints of abdominal pain, which is chronic for this patient. He was evaluated by GI, Dr. Ruiz, and underwent EGD which showed esophagitis. The patient's symptoms currently have resolved. He is tolerating diet. He is asking to be discharged today since his mother also apparently is hospitalized at [facility] today. Esophagitis: As above. Continue PPI. Pseudohyponatremia: The patient will follow up with his primary care physician. This was most likely secondary to hyperglycemia. The last blood sugar on this patient was 80. Initially he was 302. Sodium was 132 and 126. Again, the patient refuses to stay in the hospital for me to do a follow-up chemistry study. At this point, this is most likely secondary to hyperglycemia and since his blood sugars is improved I am assuming that his sodium will be also in the acceptable range. The patient does not exhibit any neurological changes. His mental status is at baseline and again he is requesting to be discharged today. Therefore, the patient is being discharged. Insulin dependent diabetes: Continue home insulin regimen. History of depression and bipolar disorder: Continue home medications. PAST MEDICAL HISTORY 1. Insulin dependent diabetes. 2. PTST and bipolar disorder (1) Unit #: [id number] #: [id number] Patient: NAYELI MCMAHON PAST SURGICAL HISTORY Exploratory laparotomy secondary to small bowel obstruction. HOME MEDICAOITNS As above. SOCIAL HISTORY He is a smoker. He denies any alcohol use or illicit drugs. FAMILY HISTORY Unremarkable. ALLERGIES No known drug allergies. PHYSICAL EXAMINATION GENERAL: The patient is a 26-year-old gentleman in no acute distress. VITALS: Blood pressure 100/50, heart rate 67, respiratory rate 20, temperature 97.7. HEENT: Atraumatic. Pupils equal, round and reactive to light and accommodation. Extraocular muscles intact. Oropharynx clear with missing teeth. NECK: Supple. No masses, JVD or bruit. CHEST: Clear to auscultation bilaterally. HEART: S1 and S2. No murmurs. ABDOMEN: Soft, nontender and nondistended. Bowel sounds present. EXTREMITIES: Lower extremities without any cyanosis, clubbing or edema. NEUROLOGIC: Grossly intact. DIAGNOSTIC STUDIES LABORATORY: White blood cell count 9.8, hemoglobin (2) , hematocrit 45.1, bicarb 33, potassium 3.7. ASSESSMENT/PLAN Please see above. DISPOSITOIN Home. FOLLWOUP 1. Outpatient followup with primary care physician in two to three days. 2. Continue PPI. Dictated by... Guevara Marcelino TD: 02/18/2017 06:58 JOB #: [id number] Unit #: [id number] #: [id number] Patient: NAYELI MCMAHON DISCHARGE SUMMARY Page 1 of 1 X Ruben Murray MD X DISCHARGE SUMMARY
--- NOTE | ~2017-02-16 | A ---
[facility] Nutrition Therapy DATE: 02/17/17 Patient: NAYELI SPEARSEDY Physician: ARTUR Address: [id number] [place] [address] Room/Bed: [address] [place] [address], Zip: [place] [address] Admit Date: 02/16/17 Date of : [birth year] Height: 6 0 Weight: 102 46.3 NUTRITIONAL ASSESSMENT: REASON: Low BMI, 1 point nutrition screen risk RE: Eating poorly 26 yo male admitted for abdominal pain PMH: Type 1 DM, asthma, recurrent DKA, peripheral neuropathy, bipolar disorder, GERD, partial SBO, PTSD Anthropometrics: Ht: 6'0" Wt: 46.3 kg BMI: 13.8 IBW: 80.9 kg, 57% IBW Labs: Na+ 126 Cl- 87 Ca++ 10.3 Accuchecks 166-439 Meds: Novolog, zofran, protonix, NaCl I/O & Bowel function: 720/250, last BM 02/15 Skin Integrity: Scar- midline abdomen Edema: none noted Estimated Nutrition Needs: Increased d/t low body weight, severe PCM Diet: NPO (for EGD) Assessment: Chart reviewed, events noted. Pt admitted for abdominal pain, thought to have enteritis per RN report. Pt is NPO for EGD, scheduled for today. Pt was previously tolerating clear liquids per RN report. RDs at [facility] have seen this pt multiple times in the past for malnutrition, DKA, weight loss and provided diet education. RD spoke with the pt at bedside today. Pt reports continued weights loss, and presents with a BMI of 13.8. Per previous admission weights, the pt has lost ~4% of his body weight in one month, current wt noted above. 50-60# weight loss reported in the past 3 yrs. Pt reports fair intake, and that he was just approved to get an insulin pump, which he believes will help his nutritional status. Pt also requested information regarding DM classes (RD provided referral form for MD to fill out in chart). Pt states "I don't want to lose weight anymore". RD encouraged adequate kcal/ protein intake and stressed the importance of weight gain. Pt voiced understanding. Pt also has signs of physical malnutrition. Please see physical malnutrition assessment attached. Severe protein-calorie malnutrition identified. Dx: 1) Severe PCM RT chronic illness, non-compliance AEB 4% weight loss in one month, BMI 13.8, 57% IBW, prolonged poor intake, protruding, prominent clavicle and shoulder bones, squared shoulder to arm joint. [facility] Nutrition Therapy DATE: 02/17/17 Patient: NAYELI MCMAHON Physician: ARTUR Address: [address] [place] [address] Room/Bed: [address] [place] [address], Zip: [place] [address] Admit Date: 02/16/17 Date of : [birth year] Height: 6 0 Weight: 102 46.3 2) Impaired glycemic control RT poor compliance AEB accuchecks 166-439. Intervention: 1. Advanced to CC/ HCHP diet once feasible 2. Ensure clear TID or Magic cup TID once diet adv 3. Recommend follow up with outpatient RD/ classess Monitoring, Evaluation and Goals: 1. Oral intake; diet advancement, tolerate >50-75% meals and supplements 2. Improve labs; glucose, Na+, Cl- 3. Weight; promote weight gain towards healthy BMI 4. GI; promote regular GI function Recommendations: 1. Once medically feasible pending EGD results, advance the pt to a high protein-high calorie/ CC diet. 2. Pt does not like Glucerna. Please order Ensure Clear TID or SF Magic Cup TID for supplemental nutrition once diet advances. 3. Recommend that the pt follow up with an outpatient RD and/or participate in the Diabetes and Nutrition Care Program. RD provided physician referral form in chart. Please contact RD with any questions. Pt is at moderate-severe nutritional risk. RD will follow hospital course. Respectfully, ARCHIE ROMERO, RD, LD Food and Nutritional Services [facility] cc: client file
--- NOTE | ~2017-02-16 | CT2 ---
[facility] A Service of [facility] RADIOLOGY TEXT RESULTS PATIENT: NAYELI MCMAHON LOCATION: [facility] 454- : [birth year] UNIT #: [id number] AGE: [address]: Lauren Gutierrez MD SEX: M ORDER DR: [id number] [address] [address] [id number] E MR#: [id number] Acc #: [id number] NAME: NAYELI MCMAHON : 1990 SEX: M STUDY DATE/TIME: 02/16/2017 17:07 UNIT: SED ROOM: STUDY DESCRIPTION: CT Abd and Pelv W Cont Attending Physician: Juan C Weiss M.D. Ordering Physician: Juan C Weiss M.D. Primary Care Physician: Benito Martinez M.D. MEDICAL IMAGING REPORT This report is preliminary unless electronic signature is present. EXAM CT of abdomen and pelvis, 02/16/2017. INDICATION Abdominal pain with nausea and vomiting for the last 4 days. TECHNIQUE Axial images were obtained through the abdomen and pelvis following oral and IV contrast administration. Multiplanar reformats were obtained. Comparison is made with 01/19/17. This CT exam was performed with one or more of the following radiation dose reduction techniques: automatic exposure control, adjustment of mA and/or kV according to patient size, and iterative reconstruction. FINDINGS ABDOMEN: Lung bases are clear. Gallbladder is normal. There is no biliary obstruction. Mild hepatomegaly is present. Solid organs are otherwise normal. There may be some thickened jejunal loops in the left mid abdomen suggesting enteritis. The remainder of the GI tract is grossly normal. PELVIS: Urinary bladder is normal. The appendix is normal. The remainder of the lower GI tract is grossly normal as well. The colon is relatively decompressed. Trace amount of free fluid is suspected. IMPRESSION 1. Mildly thickened jejunal loops in the left mid abdomen suggest enteritis. No bowel obstruction is seen. The appendix is grossly normal. 2. Mild hepatomegaly 3. Trace amount of nonspecific free fluid in the pelvis. [facility] A Service of [facility] RADIOLOGY TEXT RESULTS PATIENT: NAYELI MCMAHON LOCATION: [facility] 454- : [birth year] UNIT #: [id number] AGE: [address]: Lauren Gutierrez MD SEX: M ORDER DR: Dictated by... Virgil Hay Jr., M.D. THIS IS AN ELECTRONICALLY VERIFIED REPORT Virgil Hay Jr., M.D. at 02/16/2017 10:23 PM ROMINA/kenny TD: 02/16/2017 19:55 JOB #: [id number] MEDICAL IMAGING REPORT Page 1 of 1
--- NOTE | ~2017-02-16 | OR ---
Unit #: [id number] #: [id number] Patient: NAYELI MCMAHON [id number] [address] [place], [place] [address] [id number] I MR#: [id number] NAME: NAYELI MCMAHON ROOM: 454 Date of Procedure: 02/17/2017 Admission Date: 02/16/2017 Surgeon: Axel Ruiz M.D. : 1990 Attending Physician: Lauren Gutierrez M.D. Primary Care Physician: Benito Martinez M.D. OPERATIVE REPORT PRIMARY CARE PHYSICIAN Benito Martinez M.D. PREOPERATIVE DIAGNOSES Nausea, vomiting, epigastric pain, and weight loss. PROCEDURES PERFORMED Upper gastrointestinal endoscopy. POSTOPERATIVE DIAGNOSES The patient had distal grade 2 erosive esophagitis. Otherwise, examination normal up to third part of duodenum. Specifically, there was no gastric outlet obstruction or ulcer. The above findings are indicative of lack of any mechanical problem and the patient's symptomatology is almost certainly from cannabinoid hyperemesis syndrome. RECOMMENDATIONS The patient was strongly advised to stop cannabis or marijuana usage. He can be discharged home on omeprazole 40 mg p.o. daily. SEDATION USED MAC. DESCRIPTION OF PROCEDURE Following detailed explanation of potential risks and complications of an upper endoscopy, namely perforation, bleeding, and complications related to sedation, the patient was brought to GI lab and laid in the left lateral decubitus position. Lubricated tip of the Olympus video upper endoscope was passed through bite block into the proximal esophagus under direct vision. The entire esophageal mucosa was examined. The patient was noted to have grade 2 distal erosive confluent ulcerative esophagitis. In addition, there was no stricture or mucosal ring. The scope was then advanced in the gastric cavity and the latter was insufflated. Mucosa of the fundus, body, and antrum examined and appeared unremarkable. Pylorus was intubated with visualization of the normal duodenal bulb and second and third part of the duodenum. Upon withdrawal and retroflexion, incisura, cardia, and greater curve examined and no additional findings noted. The scope was then withdrawn in the distal esophagus. Entire esophageal mucosa was examined all the way up to pharynx. No additional findings noted. The patient tolerated the procedure without any postprocedure complications. Unit #: [id number] #: [id number] Patient: NAYELI MCMAHON Dictated by... Guevara Anderson/melba TD: 02/17/2017 23:53 JOB #: [id number] CC: Guevara Vargas M.D. OPERATIVE REPORT Page 1 of 1 X Axel Ruiz MD X PROCEDURE OPERATIVE NOTE
--- NOTE | ~2017-02-16 | MAL ---
[facility] Nutrition Therapy DATE: 02/17/17 Patient: NAYELI MCMAHON Physician: ARTUR Address: [address] [place] [address] Room/Bed: [address] [place] [address], Zip: [place] [id number] Admit Date: 02/16/17 Date of : [birth year] Height: 6 0 Weight: 102 46.3 PHYSICAL MALNUTRITION ASSESSMENT Energy Intake, Chronic Illness Severely reduced: </=50% needs for >/=1 month Weight Loss, Chronic Illness Moderate: 5% past 1 month Severe: >20% past 1 year Weight Loss, Comment: Pt has lost 4% of his body weight in the past month (since prev. admission) and also reported 50-60# weight loss in the past couple of years (>37% weight loss in 3 yrs) Physical Findings Body Fat and Muscle Mass Severe: (obvious) significant muscle wasting and/or loss of subcutaneous fat Physical Findings Functional Capacity Moderate: (suggested) reduced functional capacity Physical Findings Comment: Protruding/ prominent clavicle and shoulder bones, squared shoulder to arm joint, depression between ribs apparent. Malnutrition Survey Results: Malnutrition identified Malnutrition Etiology Summary: Chronic illness severe Malnutrition Survey Comment: Please refer to full RD nutrition assessment on previous page for additional information. Respectfully, ARCHIE ROMERO RD, LD Food and Nutritional Services [facility] cc: client file
--- NOTE | ~2017-02-16 | CO ---
Unit #: [id number] #: [id number] Patient: NAYELI MCMAHON [id number] [address] [place], [place] [address] [id number] I MR#: [id number] NAME: NAYELI MCMAHON ROOM: 454 Age: 26 Sex: M Admission Date: 02/16/2017 : 1990 Attending Physician: Lauren Gutierrez M.D. Primary Care Physician: Benito Martinez M.D. Consultation Date: 02/17/2017 CONSULTATION REPORT PRIMARY CARE PHYSICIAN Benito Martinez M.D. REASON FOR CONSULTATION Nausea, vomiting, epigastric pain, and a 50-pound weight loss. HISTORY OF PRESENT ILLNESS Mr. Mcmahon underwent an exploratory laparotomy for perforated hollow viscus. The procedure was done on 08/09/2015. The patient says he has not felt great since then and has lost about 40 to 50 pounds. He tends to have vomiting on a daily basis and his father was sitting in the room at the time of examination. The patient was frequently using the crosswords and seemed quite unhappy. His initial presentations with pneumoperitoneum, requiring exploratory laparotomy and surgery was done on 07/[address] Segundo. Today, he presents with history of repeated nausea, vomiting, epigastric pain, as well as weight loss and these symptoms have been present for the past at least 3 years. PAST MEDICAL HISTORY Significant for history of bipolar disorder, PTSD, GERD, type 1 diabetes with poor control, and peripheral neuropathy. PAST SURGICAL HISTORY Included exploratory laparotomy due to perforation of hollow viscus. CURRENT MEDICATIONS Include the following; Lovenox, Zofran, morphine sulfate, Protonix. I do not have list of his home medications. He has also been seen for diabetic ketoacidosis by Dr. Santos and according to his records, he has been on Lantus and Humalog insulin as well as Prilosec, Neurontin, Zantac, and Bentyl. ALLERGIES He has no known drug allergies. SOCIAL HISTORY Continues to smoke. Does not drink alcohol. The patient says he uses marijuana on a daily basis since the age of 12. REVIEW OF SYSTEMS Detailed review of organ systems is significant for considerable weight loss as mentioned above. There is history of nausea and vomiting. There is no history of headache, seizures, chest pain, or syncope. No history of cough, expectoration, or hemoptysis. No history of dysuria, hematuria, Unit #: [id number] #: [id number] Patient: NAYELI MCMAHON or pyuria. No history of focal seizures or extremity weakness. The patient says he has generalized weakness and therefore unable to work for the past several years. PHYSICAL EXAMINATION GENERAL: He appears emaciated. He appears alert and oriented, and quite unhappy. VITAL SIGNS: Temperature is 98.3, pulse is 59 per minute and regular, respiratory rate is 18, blood pressure is 97/47. He weighs 102 pounds and his baseline weight in the past in fact has never been more than 113 pounds, so when the patient says he has lost 50 pounds, he does not actually corroborate with the reality. HEENT: He has no pallor, icterus, lymphadenopathy, or peripheral edema. CARDIOVASCULAR: Normal heart sounds. No murmurs on auscultation. LUNGS: Normal breath sounds. Good air entry. ABDOMEN: Soft and nontender. The patient has a surgical scar in the mid abdomen from previous surgery. Liver and spleen are not palpable. Bowel sounds normal. DIAGNOSTIC STUDIES LABORATORY RESULTS: Shows a normal CBC with normal white count and hemoglobin. Serum albumin is preserved at 4.0 and blood glucose on admission was 320. His CO2 on admission was not elevated, and in fact CO2 was 28. BUN and creatinine are also normal. LFTs are all normal. Tox screen is positive for marijuana. CLINICAL IMPRESSION I had a detailed discussion with the patient and his father and explained them the differential diagnosis here lies between gastric outlet obstruction or ulcer and cannabis related hyperemesis syndrome. The third possibility is that of gastroparesis from diabetic autonomic neuropathy. A diagnostic upper endoscopy is warranted and will be scheduled shortly. Considerable discussion was held with the patient and his father and explained that he must completely quit smoking marijuana. The patient however got extremely agitated and said that he would not do that since he has been doing since the age of 12 and that this is not an issue at all. I have tried to explain to him that this is the major issue with a symptomatology. At this point, we will be stressed again after the endoscopies performed later today. Thank you very much for asking me to see this gentleman. Dictated by... Guevara Anderson/melba TD: 02/18/2017 02:04 JOB #: [id number] CC: Guevara Vargas M.D. Sarita Nair, M.D. Unit #: [id number] #: [id number] Patient: LISANDRONAYELI MEYER KYLE CONSULTATION REPORT Page 1 of 1 X Axel Ruiz MD CONSULTATION REPORT
[~2017-02-16 14:36] MED LIST changes: +LEVEMIR; +NOVOLOG100 U/ML
[2017-02-16] MEDS ORDERED: LANTUS INSULIN SUBQ (14:44)
[2017-02-16] MEDS ORDERED: HUMALOG INSULIN SUBQ (14:45)
[2017-02-16 15:21] LABS: BASOPHIL# 0.1 X10e3 (0-0.3); BASOPHIL% 0.7 % (0-2.5); DIFF IND NO; EOSINOPHIL% 0.5 % (0.0-7.0); HEMATOCRIT 45.1 % (38.0-50.0); HEMOGLOBIN 15.7 gm/dL (13.0-16.0); LYMPHOCYTE# 2.3 X10e3 (1.0-3.5); LYMPHOCYTE% 23.2 % (17.0-45.0); MEAN CELL VOLUME 95.5 FL (83-96); MEAN CORPUSCULAR HEMOGLOBIN 33.3 PG (28-34); MEAN CORPUSCULAR HGB CONC 34.9 g/dL (30-36); MEAN PLATELET VOLUME 8.6 FL (6.5-11.5); MONOCYTE# 0.5 X10e3 (0-1.0); MONOCYTE% 5.4 % (3.0-12.0); NEUTROPHIL# 6.9 X10e3 (1.5-7.1); NEUTROPHIL% 70.2 % (40-75); PLATELET COUNT 235 X10e3 (140-420); RED BLOOD COUNT 4.72 X10e (3.90-5.60); WHITE BLOOD COUNT 9.8 X10e3 (4.0-10.5)
[2017-02-16 15:34] LABS: ARTERIAL BLD GAS O2 SATURATION 55.4 % (90.0-100.0); ARTERIAL BLOOD GAS CARBOXY HB 7.9 %sat (0.0-9.0); ARTERIAL BLOOD GAS HCO3 36.8 mmol/L
[2017-02-16 15:37] LABS: URINE SOURCE CLEAN CATCH
[2017-02-16 15:37] LABS: ARTERIAL BLOOD GAS ALLEN TEST NO; ARTERIAL DRAW? NO
[2017-02-16 15:38] LABS: ARTERIAL BLOOD GAS DELIVERY ROOM AIR
[2017-02-16 15:39] LABS: URINE APPEARANCE CLEAR; URINE BLOOD NEG (NEG); URINE COLOR YELLOW; URINE GLUCOSE 100 MG/DL (NORM); URINE LEUKOCYTE ESTERASE NEG (NEG); URINE NITRATE NEG (NEG)
[2017-02-16 15:43] LABS: URINE BILIRUBIN NEG (NEG); URINE KETONE 2+ (NEG)
[2017-02-16 15:44] LABS: MICRO INDICATED? NO; URINE PROTEIN NEG (NEG)
[2017-02-16 16:18] LABS: BILIRUBIN, DIRECT 0.1 mg/dL (0.0-0.2); BILIRUBIN,INDIRECT 0.4 mg/dL (0.0-0.9); BILIRUBIN,TOTAL 0.5 mg/dL (0.2-2.0); CALCIUM SERUM 10.3 mg/dL (8.4-10.2); CREATININE SERUM 0.8 mg/dL (0.6-1.4); GLOM FILT RATE Estimated 121.6 mL/min (>60); POTASSIUM 3.7 mmol/L (3.5-5.1)
[2017-02-17 03:56] LABS: BUN/CREATININE RATIO 11.11; CALCIUM SERUM 8.8 mg/dL (8.4-10.2); CREATININE SERUM 0.9 mg/dL (0.6-1.4); GLOM FILT RATE Estimated 115.8 mL/min (>60); POTASSIUM 3.9 mmol/L (3.5-5.1)
== END 2017-02-17 21:39 | disposition home or self-care (01) | DRG 641 ==
LOC: SED 14:36 → C4B 18:26 → SED 18:26 → CEDOF 18:26 → C4B 20:21 → CEDOF 20:21 → C4B 21:15 → CEDOF 21:15 → C4B 02-17 21:39
PROVIDERS: Emergency Medicine; Family Medicine; Internal Medicine Gastroenterology
PROC: 0DJ08ZZ Inspection of Upper Intestinal Tract, Via Natural or Artificial Opening Endoscopic (ICD-10-PCS; principal; 2017-02-17 17:19)
DX: E87.1 Hypo-osmolality and hyponatremia (principal); E10.42 Type 1 diabetes mellitus with diabetic polyneuropathy; K20.8 Other esophagitis; Z79.4 Long term (current) use of insulin; F17.210 Nicotine dependence, cigarettes, uncomplicated; K21.9 Gastro-esophageal reflux disease without esophagitis; E10.65 Type 1 diabetes mellitus with hyperglycemia; Z56.0 Unemployment, unspecified
CPT/HCPCS: 36415; 74177; 80048; 80076; 81003; 82010; 82150; 82803; 82947; 83690; 83930; 83935; 84300; 84443; 85025; 96374; 96375; 96376; 99285; J1650; J1815; J2270; J2405; Q9967

== ENCOUNTER 2017-04-27 17:49 | Emergency (ER) | payer OTHER ==
[~2017-04-27] VITALS: Ht 182.9 cm; Wt 46.3 kg
--- NOTE | ~2017-04-27 | CR2 ---
[facility] A Service of [facility] RADIOLOGY TEXT RESULTS PATIENT: NAYELI MCMAHON LOCATION: [facility] : [birth year] UNIT #: [id number] AGE: [address]: Demetris Najera DO SEX: M ORDER DR: [id number] [facility] [address] [place], [place] [address] [id number] E MR#: [id number] Acc #: [id number] NAME: NAYELI MCMAHON : 1990 SEX: M STUDY DATE/TIME: 04/27/2017 18:59 UNIT: [facility] ROOM: STUDY DESCRIPTION: CR Abdomen Acute Series Attending Physician: Demetris Najera D.O. Ordering Physician: Rom Burton M.D. Primary Care Physician: Benito Martinez M.D. MEDICAL IMAGING REPORT This report is preliminary unless electronic signature is present EXAM Acute abdomen series 04/27/2017 1859 hours HISTORY Abdominal pain with vomiting for 4 days. Patient believes he has been obstructed for [address] abdomen and pelvis with contrast 02/16/2017 and chest x-ray 01/19/2017. FINDINGS Upright chest demonstrates normal cardiac, mediastinal and hilar contours. The lungs are clear and there are no effusions. Supine and upright views of the abdomen demonstrate a nonspecific bowel gas pattern. There is no bowel distension or obstruction. No suspicious calcification. No free air. IMPRESSION Negative abdomen series. No acute findings in the chest. No evidence of bowel obstruction or bowel wall thickening. No suspicious calcification or free air. Dictated by... Debbi Pino M.D. THIS IS AN ELECTRONICALLY VERIFIED REPORT Debbi Pino M.D. at 04/28/2017 9:27 AM TIFFANIE/santa TD: 04/27/2017 23:31 JOB #: [id number] [facility] A Service of [facility] RADIOLOGY TEXT RESULTS PATIENT: NAYELI MCMAHON LOCATION: [facility] : [birth year] UNIT #: [id number] AGE: [address]: Demetris Najera DO SEX: M ORDER DR: MEDICAL IMAGING REPORT Page 1 of 1 COPY
[~2017-04-27 17:49] MED LIST changes: +HUMALOG INSULIN SUBQ; +LANTUS INSULIN SUBQ
[2017-04-27 18:52] LABS: ARTERIAL BLD GAS O2 SATURATION 90.3 % (90.0-100.0); ARTERIAL BLOOD GAS HCO3 30.3 mmol/L; ARTERIAL BLOOD GAS MET HB 0.6 %sat (0.0-2.0); ARTERIAL BLOOD GAS PCO2 46.4 mmHg (35.0-45.0); ARTERIAL BLOOD GAS pH 7.424 (7.350-7.450)
[2017-04-27 18:53] LABS: ARTERIAL BLOOD GAS ALLEN TEST NORMAL; ARTERIAL BLOOD GAS ART SITE RIGHT RADIAL; ARTERIAL BLOOD GAS PO2 77.5 mmHg (80.0-100); ARTERIAL DRAW? YES
[2017-04-27 18:54] LABS: ARTERIAL BLOOD GAS DELIVERY ROOM AIR
[2017-04-27 19:17] LABS: URINE SOURCE CLEAN CATCH
[2017-04-27 19:23] LABS: URINE APPEARANCE CLEAR; URINE BILIRUBIN NEG (NEG); URINE BLOOD NEG (NEG); URINE COLOR YELLOW; URINE GLUCOSE >1000 MG/DL (NEG); URINE KETONE TRACE (NEG); URINE LEUKOCYTE ESTERASE NEG (NEG); URINE NITRATE NEG (NEG); URINE PH 7.5 (5-8); URINE PROTEIN NEG (NEG); URINE SPECIFIC GRAVITY 1.026 (1.003-1.035); URINE UROBILINOGEN 0.2 MG/DL (NEG)
[2017-04-27 19:24] LABS: BASOPHIL# 0.1 X10e3 (0-0.3); BASOPHIL% 1.1 % (0-2.5); EOSINOPHIL# 0.1 X10e3 (0-0.7); EOSINOPHIL% 1.1 % (0.0-7.0); HEMATOCRIT 39.6 % (38.0-50.0); HEMOGLOBIN 13.2 gm/dL (13.0-16.0); LYMPHOCYTE# 1.3 X10e3 (1.0-3.5); LYMPHOCYTE% 16.6 % (17.0-45.0); MEAN CELL VOLUME 102.4 FL (83-96); MEAN CORPUSCULAR HEMOGLOBIN 34.2 PG (28-34); MEAN CORPUSCULAR HGB CONC 33.4 g/dL (30-36); MONOCYTE# 0.5 X10e3 (0-1.0); MONOCYTE% 6.7 % (3.0-12.0); NEUTROPHIL% 74.5 % (40-75); PLATELET COUNT 186 X10e3 (140-420); RED BLOOD COUNT 3.86 X10e (3.90-5.60); RED CELL DISTRIBUTION WIDTH 13.3 % (11.0-15.5); WHITE BLOOD COUNT 8.1 X10e3 (4.0-10.5)
[2017-04-27 19:26] LABS: DIFF IND NO
[2017-04-27 19:29] LABS: CULTURE INDICATED? NO
[2017-04-27 20:10] LABS: ALBUMIN SERUM 3.3 g/dL (3.5-5.0); BETA HYDROXYBUTYRATE 0.93 MMOL/L (0.02-0.27); BILIRUBIN, DIRECT 0.2 mg/dL (0.0-0.2); BILIRUBIN,INDIRECT 0.5 mg/dL (0.0-0.9); BILIRUBIN,TOTAL 0.7 mg/dL (0.2-2.0); BUN/CREATININE RATIO 13.33; CALCIUM SERUM 8.4 mg/dL (8.4-10.2); CREATININE SERUM 0.9 mg/dL (0.6-1.4); GLOM FILT RATE Estimated 115.8 mL/min (>60); POTASSIUM 5.3 mmol/L (3.5-5.1); PROTEIN TOTAL SERUM 5.8 g/dL (6.0-8.3)
== END 2017-04-27 21:00 | disposition left against medical advice (07) ==
LOC: CED 17:49
PROVIDERS: Emergency Medicine
DX: E10.65 Type 1 diabetes mellitus with hyperglycemia (principal); R10.84 Generalized abdominal pain; Z79.899 Other long term (current) drug therapy; Z79.4 Long term (current) use of insulin
CPT/HCPCS: 36415; 36600; 74022; 80048; 80076; 81003; 82010; 82803; 82947; 83690; 85025; 96361; 96372; 96374; 96375; 99285; C9113; J0500; J2405

== ENCOUNTER 2017-06-11 20:32 | Emergency (ER) | payer OTHER ==
[~2017-06-11] VITALS: Ht 182.9 cm; Wt 49.9 kg
--- NOTE | ~2017-06-11 | CR72 ---
[facility] A Service of [facility] RADIOLOGY TEXT RESULTS PATIENT: NAYELI MCMAHON LOCATION: SED : [birth year] UNIT #: [id number] AGE: [address]: Nale Calderon MD SEX: M ORDER DR: [id number] [address] [address] [id number] E MR#: [id number] Acc #: [id number] NAME: NAYELI MCMAHON : 1990 SEX: M STUDY DATE/TIME: 06/11/2017 21:01 UNIT: SED ROOM: STUDY DESCRIPTION: CR Chest Single View Portable Attending Physician: Nael Calderon M.D. Ordering Physician: Nael Calderon M.D. Primary Care Physician: Benito Martinez M.D. MEDICAL IMAGING REPORT This report is preliminary unless electronic signature is present. EXAM Portable chest HISTORY Hypoglycemia, shortness of air, weakness for 2 days. COMPARISON 01/19/2017 FINDINGS A single AP portable view of the chest shows both lungs to be clear. The heart is normal in size. The mediastinal contour is normal. No significant bone abnormalities are seen. IMPRESSION Normal portable chest. Dictated by... Jani Alvarado M.D. THIS IS AN ELECTRONICALLY VERIFIED REPORT Jani Alvarado M.D. at 06/13/2017 3:15 PM ROSALVA/santa TD: 06/12/2017 11:51 JOB #: [id number] MEDICAL IMAGING REPORT Page 1 of 1
[2017-06-11 20:54] LABS: URINE SOURCE CLEAN CATCH
[2017-06-11 20:57] LABS: URINE APPEARANCE CLEAR; URINE BILIRUBIN NEG (NEG); URINE BLOOD NEG (NEG); URINE COLOR YELLOW; URINE GLUCOSE 300 MG/DL (NORM); URINE KETONE TRACE (NEG); URINE LEUKOCYTE ESTERASE NEG (NEG); URINE NITRATE NEG (NEG); URINE PH 6.5 (5-8); URINE PROTEIN NEG (NEG); URINE SPECIFIC GRAVITY <=1.005 (1.003-1.035); URINE UROBILINOGEN 0.2 MG/DL (NORM)
[2017-06-11 20:57] LABS: BASOPHIL# 0.1 X10e3 (0-0.3); BASOPHIL% 1.2 % (0-2.5); EOSINOPHIL% 0.4 % (0.0-7.0); HEMATOCRIT 42.4 % (38.0-50.0); HEMOGLOBIN 14.2 gm/dL (13.0-16.0); LYMPHOCYTE# 0.9 X10e3 (1.0-3.5); LYMPHOCYTE% 7.9 % (17.0-45.0); MEAN CELL VOLUME 104.7 FL (83-96); MEAN CORPUSCULAR HEMOGLOBIN 35.2 PG (28-34); MEAN CORPUSCULAR HGB CONC 33.6 g/dL (30-36); MEAN PLATELET VOLUME 9.7 FL (6.5-11.5); MONOCYTE# 0.8 X10e3 (0-1.0); NEUTROPHIL# 9.9 X10e3 (1.5-7.1); NEUTROPHIL% 83.5 % (40-75); PLATELET COUNT 182 X10e3 (140-420); RED BLOOD COUNT 4.05 X10e (3.90-5.60); RED CELL DISTRIBUTION WIDTH 13.1 % (11.0-15.5); WHITE BLOOD COUNT 11.8 X10e3 (4.0-10.5)
[2017-06-11 20:58] LABS: DIFF IND NO
[2017-06-11 21:03] LABS: MICRO INDICATED? NO
[2017-06-11 21:17] LABS: ARTERIAL BLD GAS O2 SATURATION 87.6 % (90.0-100.0); ARTERIAL BLOOD GAS CARBOXY HB 10.2 %sat (0.0-9.0); ARTERIAL BLOOD GAS HCO3 28.6 mmol/L
[2017-06-11 21:21] LABS: ARTERIAL DRAW? YES
[2017-06-11 21:22] LABS: ARTERIAL BLOOD GAS ALLEN TEST NORMAL; ARTERIAL BLOOD GAS ART SITE LEFT RADIAL
[2017-06-11 21:34] LABS: ALBUMIN SERUM 3.5 g/dL (3.5-5.0); BILIRUBIN,TOTAL 0.8 mg/dL (0.2-2.0); CALCIUM SERUM 8.8 mg/dL (8.4-10.2); MAGNESIUM 1.6 mg/dL (1.6-3.0); PHOSPHOROUS 4.3 mg/dL (2.5-4.6); POTASSIUM 4.4 mmol/L (3.5-5.1); PROTEIN TOTAL SERUM 5.9 g/dL (6.0-8.3)
== END 2017-06-11 22:57 | disposition home or self-care (01) ==
LOC: SED 20:32
PROVIDERS: Emergency Medicine
DX: E10.65 Type 1 diabetes mellitus with hyperglycemia (principal); R05 Cough; F17.210 Nicotine dependence, cigarettes, uncomplicated; Z79.899 Other long term (current) drug therapy
CPT/HCPCS: 36415; 36600; 71010; 80053; 81003; 82803; 82947; 83690; 83735; 84100; 85025; 87040; 96361; 96374; 96375; 99285; J2270; J2405